=== PATIENT | female | born 1960 | race Two or more races ===

== ENCOUNTER → 2016-10-11 | Outpatient (CLI) | payer MEDICARE, MEDICAID ==
--- NOTE | 2016-10-11 10:57 | WOMENS IMAGING REPORT ---
EXAM DESCRIPTION: BONE DENSITY HIP/SPINE COMPLETED DATE/TIME: 10/11/2016 10:35 am REASON FOR STUDY: Z78.0 Z12.31 ENCNTR SCREEN MAMMOGRAM FOR MALIGNANT NEOPLASM OF LESIA M19.91 PRIMAR Y OSTEOARTHRITIS, UNSPECIFIED SITE Z78.0 ASYMPTOMATIC MENOPAUSAL STATE COMPARISON: None. TECHNIQUE: Dual-Energy X-ray Absorptiometry (DEXA) of the AP Spine and Hip. LIMITATIONS: None. FINDINGS: LUMBAR SPINE: The bone mineral density (BMD) measured from L1-L4 in the AP projection correlates with a T-score of +1.4, which is normal as defined by the World Health Organization. HIP: The bone mineral density (BMD) measured in the left femoral neck at the hip correlates with a T-score of +0.9, which is normal as defined by the World Health Organization. COMMENT: The World Health Organization defines low BMD as follows: T-score: Normal: Greater than -1.0 Osteopenia: Between -1.0 and -2.5 Osteoporosis: Less than -2.5 without fractures Established osteoporosis: Less than -2.5 with fractures In general, you may wish to consider: Diagnosis Treatment Follow-up DEXA Normal BMD Prevention 2-3 years Osteopenia Prevention/Therapy 1-2 years Osteoporosis Therapy Yearly TECHNICAL DOCUMENTATION: JOB ID: [id number] [employer]- All Rights Reserved
--- NOTE | 2016-10-11 11:05 | WOMENS IMAGING REPORT ---
EXAM DESCRIPTION: BILAT SCREENING MAMMO W/CAD COMPLETED DATE/TIME: 10/11/2016 10:35 am REASON FOR STUDY: Z12.31, ROUTINE SCREENING MAMMO Z12.31 ENCNTR SCREEN MAMMOGRAM FOR MALIGNANT NEOP LASM OF LESIA M19.91 PRIMARY OSTEOARTHRITIS, UNSPECIFIED SITE Z78.0 ASYMPTOMATIC MENOPAUSAL STATE COMPARISON: 2010 TECHNIQUE: Standard craniocaudal and mediolateral oblique views of each breast recorded using digita l acquisition. LIMITATIONS: None. FINDINGS: No masses, calcifications or architectural distortion. No areas of suspicion. Read with the assistance of CAD. .[facility] - R2 Cenova Version 1.3 .[facility] - R2 Cenova Version 1.3 .[facility] - R2 Cenova Version 2.4 .[facility] [place]2 Cenova Version 2.4 .[facility] - R2 [employer] Version 9.2 BREAST DENSITY: b. There are scattered areas of fibroglandular density. BIRAD: 1 NEGATIVE RECOMMENDATION: ROUTINE SCREENING COMMENT: PATIENT NOTIFIED BY LETTER. The [employer] recommends an annual screening mammogram for women aged 40 years or over. Each patient will receive a reminder prior to the anniversary date of her mammogram. The [employer] (ACR) has developed recommendations for screening MRI of the breast s in certain patient populations, to be used in conjunction with mammography. Breast MRI surveillanc e may be appropriate for women with more than 20% lifetime risk of developing breast cancer as deter mined by genetic testing, significant family history of the disease, or history of mantle radiation f or Hodgkins Disease. ACR Practice Guidelines 2008. TECHNICAL DOCUMENTATION: FINDING NUMBER: (1) ASSESSMENT: (1) JOB ID: [id number] [facility]- All Rights Reserved
== END ==
LOC: WI 09:37
PROVIDERS: ATTEND Nurse Practitioner
DX: Z12.31 Encounter for screening mammogram for malignant neoplasm of breast (principal); Z13.820 Encounter for screening for osteoporosis; Z78.0 Asymptomatic menopausal state
CPT/HCPCS: 77080; G0202; 77067

== ENCOUNTER → 2016-11-12 | Outpatient (CLI) | payer MEDICARE, MEDICAID ==
[2016-11-12 07:46] LABS: HEMATOCRIT 37.6 % (36.0-47.0); HEMOGLOBIN 12.5 g/dL (12.0-15.5); HGB HCT DIFFERENCE -0.1; MEAN CORPUSCULAR HEMOGLOBIN 30.4 pg (27.0-33.4); MEAN CORPUSCULAR HGB CONC 33.3 g/dL (32.0-36.0); MEAN CORPUSCULAR VOLUME 91 fl (80-97); RED BLOOD COUNT 4.12 10^6/uL (3.72-5.28); RED CELL DISTRIBUTION WIDTH 13.3 % (11.5-14.0); WHITE BLOOD COUNT 6.6 10^3/uL (4.0-10.5)
[2016-11-12 07:49] LABS: APPEARANCE,URINE SLIGHTLY-CLOUDY; BILIRUBIN,URINE NEGATIVE (NEGATIVE); GLUCOSE, URINE NEGATIVE (NEGATIVE); KETONES,URINE NEGATIVE (NEGATIVE); LEUKOCYTE ESTERASE,URINE NEGATIVE (NEGATIVE); NITRITE,URINE NEGATIVE (NEGATIVE); PROTEIN,URINE NEGATIVE (NEGATIVE); URINE SPECIFIC GRAVITY 1.016; UROBILINOGEN,URINE NEGATIVE mg/dL (<2.0)
[2016-11-12 08:17] LABS: ANION GAP 13 (5-19); BLOOD UREA NITROGEN 69 mg/dL (7-20); CALCIUM 9.9 mg/dL (8.4-10.2); CARBON DIOXIDE 22 mmol/L (22-30); CHLORIDE 101 mmol/L (98-107); CREATININE RESULT 2.43 mg/dL (0.52-1.25); GLUCOSE 108 mg/dL (75-110); POTASSIUM 3.9 mmol/L (3.6-5.0); SODIUM 135.8 mmol/L (137-145)
== END ==
LOC: OD 07:10
PROVIDERS: ATTEND Internal Medicine Nephrology
DX: E11.22 Type 2 diabetes mellitus with diabetic chronic kidney disease (principal); I12.9 Hypertensive chronic kidney disease with stage 1 through stage 4 chronic kidney disease, or unspecified chronic kidney disease; N18.3 Chronic kidney disease, stage 3 (moderate)
CPT/HCPCS: 36415; 80048; 81001; 85027

== ENCOUNTER → 2016-11-25 | Outpatient (CLI) | payer MEDICARE, MEDICAID | LOC: WI 07:06 | PROVIDERS: ATTEND Internal Medicine Nephrology | DX: N17.9 Acute kidney failure, unspecified (principal); N18.3 Chronic kidney disease, stage 3 (moderate) | CPT/HCPCS: 76770 ==

== ENCOUNTER → 2016-12-10 | Outpatient (CLI) | payer MEDICARE, MEDICAID ==
[2016-12-10 10:17] LABS: APPEARANCE,URINE CLEAR; BILIRUBIN,URINE NEGATIVE (NEGATIVE); GLUCOSE, URINE NEGATIVE (NEGATIVE); KETONES,URINE NEGATIVE (NEGATIVE); LEUKOCYTE ESTERASE,URINE NEGATIVE (NEGATIVE); NITRITE,URINE NEGATIVE (NEGATIVE); PROTEIN,URINE NEGATIVE (NEGATIVE); URINE SPECIFIC GRAVITY 1.019; UROBILINOGEN,URINE NEGATIVE mg/dL (<2.0)
[2016-12-10 10:35] LABS: HEMATOCRIT 33.6 % (36.0-47.0); HEMOGLOBIN 11.4 g/dL (12.0-15.5); HGB HCT DIFFERENCE 0.6; MEAN CORPUSCULAR HEMOGLOBIN 31.4 pg (27.0-33.4); MEAN CORPUSCULAR HGB CONC 33.9 g/dL (32.0-36.0); MEAN CORPUSCULAR VOLUME 93 fl (80-97); RED BLOOD COUNT 3.63 10^6/uL (3.72-5.28); RED CELL DISTRIBUTION WIDTH 12.9 % (11.5-14.0); WHITE BLOOD COUNT 5.2 10^3/uL (4.0-10.5)
[2016-12-10 10:52] LABS: ALANINE AMINOTRANSFERASE 26 U/L (9-52); ALBUMIN 4.1 g/dL (3.5-5.0); ALKALINE PHOSPHATASE 59 U/L (38-126); ANION GAP 13 (5-19); ASPARTATE AMINO TRANSFERASE 22 U/L (14-36); BILIRUBIN,DIRECT 0.2 mg/dL (0.0-0.4); BILIRUBIN,TOTAL 0.4 mg/dL (0.2-1.3); BLOOD UREA NITROGEN 20 mg/dL (7-20); CALCIUM 9.8 mg/dL (8.4-10.2); CARBON DIOXIDE 27 mmol/L (22-30); CHLORIDE 104 mmol/L (98-107); CREATININE RESULT 1.26 mg/dL (0.52-1.25); GLUCOSE 109 mg/dL (75-110); POTASSIUM 4.2 mmol/L (3.6-5.0); SODIUM 143.9 mmol/L (137-145); TOTAL PROTEIN 7.2 g/dL (6.3-8.2)
== END ==
LOC: OD 08:54
PROVIDERS: ATTEND Internal Medicine Nephrology
DX: I12.9 Hypertensive chronic kidney disease with stage 1 through stage 4 chronic kidney disease, or unspecified chronic kidney disease (principal); N18.3 Chronic kidney disease, stage 3 (moderate); E11.9 Type 2 diabetes mellitus without complications; M10.9 Gout, unspecified
CPT/HCPCS: 36415; 80053; 81001; 82533; 85027

== ENCOUNTER 2017-01-28 16:06 | Emergency (ER) | payer MEDICAID, MEDICARE ==
[2017-01-28 16:31] VITALS: BP 116/96
[2017-01-28] MEDS ORDERED: METOCLOPRAMIDE HCL 10 MG TABLET PO ONE (17:44)
--- NOTE | 2017-01-28 17:44 | ER Document Report ---
ED Medical Screen (RME) - General Chief Complaint: Flank Pain Stated Complaint: FLANK PAIN Time Seen by Provider: 01/28/17 17:41 Mode of Arrival: Ambulatory Information source: Patient Notes: PT REPORTS TO THE ED FOR C/O LEFT FLANK AND SYNCOPE. FLANK PAIN STARTED TODAY, WENT TO VOID, PASSED OUT DUE TO PAIN. MED GIVEN TO HER BY EMS HELPED. HX OF KIDNEY STONES. DENIES F/V REPORTS DIARRHEA AND CHILLS/BODY ACHES. EATING AND DRINKING OK. NO FOOD TODAY, BUT DRANK LOTS OF JUICE. TRAVEL OUTSIDE OF THE [place] IN LAST 30 DAYS: No - Related Data Allergies/Adverse Reactions: codeine [Codeine] Allergy (Verified 01/28/17 16:28) Past Medical History - Past Medical History Cardiac Medical History: Reports: Hx Hypercholesterolemia, Hx Hypertension Denies: Hx Coronary Artery Disease, Hx Heart Attack Pulmonary Medical History: Denies: Hx Asthma, Hx Bronchitis, Hx COPD, Hx Pneumonia Endocrine Medical History: Reports: Hx Diabetes Mellitus Type 2 Renal/ Medical History: Reports: Hx Kidney Stones, Hx Renal Insufficiency. Denies: Hx Peritoneal Dialysis Musculoskeltal Medical History: Denies Hx Arthritis Past Surgical History: Reports: Hx Hysterectomy - Immunizations Immunizations up to date: Yes Hx Diphtheria, Pertussis, Tetanus Vaccination: No Physical Exam - Vital signs Vitals: Temp Pulse Resp BP Pulse Ox 97.7 F 77 19 116/96 H 100 01/28/17 16:29 01/28/17 16:29 01/28/17 16:29 01/28/17 16:29 01/28/17 16:29 Course - Vital Signs Vital signs: Temp Pulse Resp BP Pulse Ox 97.7 F 77 19 116/96 H 100 01/28/17 16:29 01/28/17 16:29 01/28/17 16:29 01/28/17 16:29 01/28/17 16:29
== END 2017-01-28 17:41 | disposition left against medical advice (07) ==
LOC: ER 16:06
DX: R10.9 Unspecified abdominal pain (principal); R55 Syncope and collapse; Z87.442 Personal history of urinary calculi; E78.00 Pure hypercholesterolemia, unspecified; I10 Essential (primary) hypertension; Z90.710 Acquired absence of both cervix and uterus
CPT/HCPCS: 99281

== ENCOUNTER 2017-04-12 08:20 | Emergency (ER) | payer MEDICARE, MEDICAID ==
[2017-04-12] MEDS ORDERED: ONDANSETRON HCL INJ/PF 4 MG/2 ML SDV IV ONE (08:44)
[2017-04-12] MEDS ORDERED: NORMAL SALINE 1000 ML 1,000 ML IV ONE (08:44)
--- NOTE | 2017-04-12 08:45 | ER Document Report ---
ED GI/ - General Chief Complaint: Abdominal Pain Stated Complaint: ABDOMINAL PAIN/VOMITING Time Seen by Provider: 04/12/17 08:43 Mode of Arrival: Ambulatory Information source: Patient Notes: Patient is a 57-year-old female who presents to the ER today for dizziness, like "the room is spinning" that began last night. She states after the dizziness began she began having nausea, vomiting and a slight headache. She states that the room spins whenever she looks anywhere, moves her head or changes position. She has never had vertigo before. She also admits to ringing in both of her ears and fluid coming out of her ears on the pillow recently. She also admits to some heartburn, stating that has been 3 months since she had her Nexium because of the prior authorization that the insurance is not approved yet. She denies taking anything for acid reflux in the meantime. She denies any shortness of breath with chest pain, history of heart attack or stroke, radiation of chest pain anywhere else. TRAVEL OUTSIDE OF THE [place] IN LAST 30 DAYS: No - Related Data Allergies/Adverse Reactions: codeine [Codeine] Allergy (Verified 04/12/17 08:25) Past Medical History - General Information source: Patient - Social History Smoking Status: Unknown if Ever Smoked Family History: Reviewed & Not Pertinent Patient has suicidal ideation: No Patient has homicidal ideation: No - Past Medical History Cardiac Medical History: Reports: Hx Hypercholesterolemia, Hx Hypertension Denies: Hx Coronary Artery Disease, Hx Heart Attack Pulmonary Medical History: Denies: Hx Asthma, Hx Bronchitis, Hx COPD, Hx Pneumonia Endocrine Medical History: Reports: Hx Diabetes Mellitus Type 2 Renal/ Medical History: Reports: Hx Kidney Stones, Hx Renal Insufficiency. Denies: Hx Peritoneal Dialysis Musculoskeltal Medical History: Denies Hx Arthritis Past Surgical History: Reports: Hx Hysterectomy - Immunizations Immunizations up to date: Yes Hx Diphtheria, Pertussis, Tetanus Vaccination: No Review of Systems - Review of Systems Constitutional: No symptoms reported EENT: No symptoms reported Cardiovascular: No symptoms reported Respiratory: No symptoms reported Gastrointestinal: See HPI Genitourinary: No symptoms reported Female Genitourinary: No symptoms reported Musculoskeletal: No symptoms reported Skin: No symptoms reported Hematologic/Lymphatic: No symptoms reported Neurological/Psychological: See HPI Physical Exam - Vital signs Vitals: Temp Pulse Resp BP Pulse Ox 98.3 F 100 22 H 129/94 H 96 04/12/17 08:22 04/12/17 08:22 04/12/17 08:22 04/12/17 08:22 04/12/17 08:22 - Notes Notes: PHYSICAL EXAMINATION: GENERAL: Obviously uncomfortable, holding icepack to the right side of her head , but in no acute distress. HEAD: Atraumatic, normocephalic. EYES: Patient unable to tolerate extraocular movements from side to side, unable to assess nystagmus, pupils equal round and reactive to light, sclera anicteric, conjunctiva are normal. ENT: ear canals without erythema or foreign body, TMs with fluid behind bilaterally, nares patent, oropharynx clear without exudates. Moist mucous membranes. NECK: Normal range of motion, supple without lymphadenopathy LUNGS: CTAB and equal. No wheezes rales or rhonchi. HEART: Regular rate and rhythm without murmurs ABDOMEN: Soft, no tenderness. No guarding, no rebound EXTREMITIES: Normal range of motion, no pitting edema. No cyanosis. NEUROLOGICAL: Cranial nerves grossly intact. Normal sensory/motor exams. PSYCH: Normal mood, normal affect. SKIN: Warm, Dry, normal turgor, no rashes or lesions noted Course - Re-evaluation Re-evalutation: 04/12/17 10:07 Patient feels better after GI cocktail, I will send her home with an antacid medication that is not Nexium until she can get her Nexium for her insurance. Patient also feels better after meclizine, stating that it has helped her dizziness but that she is still having some nausea. I will add something else for nausea and send her home with hydrochlorothiazide, meclizine, nausea medication for Mnire's disease. - Vital Signs Vital signs: Temp Pulse Resp BP Pulse Ox 98.3 F 100 18 129/94 H 96 04/12/17 08:22 04/12/17 08:22 04/12/17 08:45 04/12/17 08:22 04/12/17 08:22 Discharge - Discharge Clinical Impression: Mnire's disease Qualifiers: Laterality: bilateral Qualified Code(s): H81.03 - Meniere's disease, bilateral Condition: Stable Disposition: HOME, SELF-CARE Additional Instructions: Return immediately for any new or worsening symptoms. Follow up with primary care provider, call tomorrow to make followup appointment. Prescriptions: Hydrochlorothiazide 12.5 mg PO DAILY #21 capsule Meclizine HCl 25 mg PO TID #40 tablet Omeprazole Magnesium [Prilosec Otc] 20 mg PO DAILY #30 tablet. Ondansetron [Zofran Odt 4 mg Tablet] 1 - 2 tab PO Q4H PRN #15 tab.rapdis PRN Reason: For Nausea/Vomiting Referrals: LIAM DE LA TORRE, NIEVES-C [Primary Care Provider] - Follow up as needed
[2017-04-12] MEDS ORDERED: MECLIZINE HCL 25 MG TABLET PO ONE (08:54)
[2017-04-12] MEDS ORDERED: PREDNISONE 20 MG TABLET PO ONE (08:54)
[2017-04-12] MEDS ORDERED: HYDROCHLOROTHIAZIDE 12.5 MG CAPSULE PO ONE (08:54)
[2017-04-12] MEDS ORDERED: METOCLOPRAMIDE HCL ORAL SOLN 10 MG/10 ML UDCUP PO ONE (08:55)
[2017-04-12] MEDS ORDERED: MAG HYDROX/AL HYDROX/SIMETH SUSP 30 ML UDCUP PO ONE (08:55)
[2017-04-12] MEDS ORDERED: LIDOCAINE 2% VISCOUS SOLN 20 ML UDCUP PO ONE (08:55)
[2017-04-12] MEDS ORDERED: ONDANSETRON 4 MG TAB.RAPDIS PO ONE (10:10)
[2017-04-12 10:27] VITALS: BP 132/85
== END 2017-04-12 10:27 | disposition home or self-care (01) ==
LOC: ER 08:20
DX: H81.03 Meniere's disease, bilateral (principal); R42 Dizziness and giddiness; Z88.6 Allergy status to analgesic agent; I10 Essential (primary) hypertension; E78.00 Pure hypercholesterolemia, unspecified; Z90.710 Acquired absence of both cervix and uterus; E11.9 Type 2 diabetes mellitus without complications; R11.0 Nausea; Z79.899 Other long term (current) drug therapy
CPT/HCPCS: 99284; A9270 ×4; J3490; S0119

== ENCOUNTER → 2017-07-09 | Outpatient (CLI) | payer MEDICARE, MEDICAID ==
[2017-07-09 09:28] LABS: APPEARANCE,URINE CLEAR; BILIRUBIN,URINE NEGATIVE (NEGATIVE); GLUCOSE, URINE NEGATIVE (NEGATIVE); KETONES,URINE NEGATIVE (NEGATIVE); LEUKOCYTE ESTERASE,URINE NEGATIVE (NEGATIVE); NITRITE,URINE NEGATIVE (NEGATIVE); PROTEIN,URINE NEGATIVE (NEGATIVE); URINE SPECIFIC GRAVITY 1.018; UROBILINOGEN,URINE NEGATIVE mg/dL (<2.0)
[2017-07-09 09:39] LABS: HEMATOCRIT 35.1 % (36.0-47.0); HEMOGLOBIN 12.3 g/dL (12.0-15.5); HGB HCT DIFFERENCE 1.8; MEAN CORPUSCULAR HEMOGLOBIN 31.5 pg (27.0-33.4); MEAN CORPUSCULAR HGB CONC 34.9 g/dL (32.0-36.0); MEAN CORPUSCULAR VOLUME 90 fl (80-97); RED BLOOD COUNT 3.89 10^6/uL (3.72-5.28); RED CELL DISTRIBUTION WIDTH 12.3 % (11.5-14.0); WHITE BLOOD COUNT 5.1 10^3/uL (4.0-10.5)
[2017-07-09 10:02] LABS: ANION GAP 12 (5-19); BLOOD UREA NITROGEN 17 mg/dL (7-20); CALCIUM 9.7 mg/dL (8.4-10.2); CARBON DIOXIDE 26 mmol/L (22-30); CHLORIDE 106 mmol/L (98-107); CREATININE RESULT 0.95 mg/dL (0.52-1.25); GLUCOSE 173 mg/dL (75-110); POTASSIUM 4.6 mmol/L (3.6-5.0); SODIUM 143.5 mmol/L (137-145); URIC ACID 6.3 mg/dL (2.5-7.5)
== END ==
LOC: OD 08:15
PROVIDERS: ATTEND Internal Medicine Nephrology
DX: E11.22 Type 2 diabetes mellitus with diabetic chronic kidney disease (principal); I12.9 Hypertensive chronic kidney disease with stage 1 through stage 4 chronic kidney disease, or unspecified chronic kidney disease; N18.3 Chronic kidney disease, stage 3 (moderate)
CPT/HCPCS: 36415; 80048; 81001; 84550; 85027

== ENCOUNTER 2018-01-02 08:24 | Emergency (ER) | payer MEDICARE, MEDICAID ==
--- NOTE | 2018-01-02 09:26 | RADIOLOGY REPORT (SQ) ---
EXAM DESCRIPTION: CHEST 2 VIEWS COMPLETED DATE/TIME: 01/02/2018 9:18 am REASON FOR STUDY: cough congestion COMPARISON: 05/25/2016. EXAM PARAMETERS: NUMBER OF VIEWS: two views TECHNIQUE: Digital Frontal and Lateral radiographic views of the chest acquired. RADIATION DOSE: NA LIMITATIONS: none FINDINGS: LUNGS AND PLEURA: No opacities, masses or pneumothorax. No pleural effusion. MEDIASTINUM AND HILAR STRUCTURES: No masses or contour abnormalities. HEART AND VASCULAR STRUCTURES: Heart normal size. No evidence for failure. BONES: No acute findings. HARDWARE: None in the chest. OTHER: No other significant finding. IMPRESSION: NO ACUTE RADIOGRAPHIC FINDING IN THE CHEST. TECHNICAL DOCUMENTATION: JOB ID: [id number] [employer]- All Rights Reserved Reading location - IP/workstation name: [email or web address]
--- NOTE | 2018-01-02 09:49 | ER Document Report ---
ED General - General Chief Complaint: Congestion Stated Complaint: COUGH,CONGESTION, CHEST PAIN Time Seen by Provider: 01/02/18 08:35 Mode of Arrival: Ambulatory Information source: Patient Notes: 57-year-old female presents with 1 week duration of cough congestion. Patient was seen at urgent care started on Augmentin notes intermittent fevers and chills,. Patient denies any vomiting notes she has been using her inhaler that she was provided. TRAVEL OUTSIDE OF THE [place] IN LAST 30 DAYS: No - HPI Onset: Last week Onset/Duration: Persistent Quality of pain: Achy Severity: Mild Pain Level: 1 Associated symptoms: Body/muscle aches, Chills, Productive cough, Fever Exacerbated by: Denies Relieved by: Denies Similar symptoms previously: Yes Recently seen / treated by doctor: Yes - Related Data Allergies/Adverse Reactions: codeine [Codeine] Allergy (Verified 01/02/18 09:19) Past Medical History - Social History Smoking Status: Never Smoker Cigarette use (# per day): No Chew tobacco use (# tins/day): No Smoking Education Provided: No Frequency of alcohol use: None Drug Abuse: None Family History: Reviewed & Not Pertinent Patient has suicidal ideation: No Patient has homicidal ideation: No - Past Medical History Cardiac Medical History: Reports: Hx Hypercholesterolemia, Hx Hypertension Denies: Hx Coronary Artery Disease, Hx Heart Attack Pulmonary Medical History: Denies: Hx Asthma, Hx Bronchitis, Hx COPD, Hx Pneumonia Endocrine Medical History: Reports: Hx Diabetes Mellitus Type 2 Renal/ Medical History: Reports: Hx Kidney Stones, Hx Renal Insufficiency. Denies: Hx Peritoneal Dialysis Musculoskeltal Medical History: Denies Hx Arthritis Past Surgical History: Reports: Hx Hysterectomy - Immunizations Immunizations up to date: Yes Hx Diphtheria, Pertussis, Tetanus Vaccination: No Review of Systems - Review of Systems Notes: REVIEW OF SYSTEMS: CONSTITUTIONAL : Fevers chills EENT: Denies eye, ear, throat, or mouth pain or symptoms. Denies nasal or sinus congestion or discharge. Denies throat, tongue, or mouth swelling or difficulty swallowing. CARDIOVASCULAR: Denies chest pain. Denies palpitations or racing or irregular heart beat. Denies ankle edema. RESPIRATORY: Productive cough shortness of breath GASTROINTESTINAL: Denies abdominal pain or distention. Denies nausea, vomiting , or diarrhea. Denies blood in vomitus, stools, or per rectum. Denies black, tarry stools. Denies constipation. GENITOURINARY: Denies difficulty urinating, painful urination, burning, frequency, blood in urine, or discharge. FEMALE GENITOURINARY: Denies vaginal bleeding, heavy or abnormal periods, irregular periods. Denies vaginal discharge or odor. MUSCULOSKELETAL: Denies back or neck pain or stiffness. Denies joint pain or swelling. SKIN: Denies rash, lesions or sores. HEMATOLOGIC : Denies easy bruising or bleeding. LYMPHATIC: Denies swollen, enlarged glands. NEUROLOGICAL: Denies confusion or altered mental status. Denies passing out or loss of consciousness. Denies dizziness or lightheadedness. Denies headache. Denies weakness or paralysis or loss of use of either side. Denies problems with gait or speech. Denies sensory loss, numbness, or tingling. Denies seizures. PSYCHIATRIC: Denies anxiety or stress. Denies depression, suicidal ideation, or homicidal ideation. ALL OTHER SYSTEMS REVIEWED AND NEGATIVE. PHYSICAL EXAMINATION: GENERAL: Well-appearing, well-nourished and in no acute distress. HEAD: Atraumatic, normocephalic. EYES: Pupils equal round and reactive to light, extraocular movements intact, conjunctiva are normal. ENT: Nares patent, oropharynx clear without exudates. Moist mucous membranes. NECK: Normal range of motion, supple without lymphadenopathy LUNGS: Breath sounds clear to auscultation bilaterally and equal. No wheezes rales or rhonchi. HEART: Regular rate and rhythm without murmurs ABDOMEN: Soft, nontender, nondistended abdomen. No guarding, no rebound. No masses appreciated. Female : deferred Musculoskeletal: Normal range of motion, no pitting or edema. No cyanosis. Chest wall pain upon palpation NEUROLOGICAL: Cranial nerves grossly intact. Normal speech, normal gait. Normal sensory, motor exams PSYCH: Normal mood, normal affect. SKIN: Warm, Dry, normal turgor, no rashes or lesions noted. Dictation was performed using [employer] voice recognition software Physical Exam - Vital signs Vitals: Temp Pulse Resp BP Pulse Ox 97.7 F 83 18 141/72 H 97 01/02/18 08:29 01/02/18 08:29 01/02/18 08:29 01/02/18 08:29 01/02/18 08:29 Course - Re-evaluation Re-evalutation: 01/02/18 09:49 Patient overall looks well is in no distress x-ray noted no acute abnormality given medical history though she is at higher risk for decompensation from infectious process, patient therefore will be placed on azithromycin very low dose of prednisone as she does have a history of diabetes. After performing a Medical Screening Examination, I estimate there is LOW risk for ACUTE CORONARY SYNDROME, PULMONARY EMBOLI, RESPIRATORY FAILURE, SEPSIS OR MENINGITIS, thus I consider the discharge disposition reasonable. I have reevaluated this patient multiple times and no significant life threatening changes are noted. The patient and I have discussed the diagnosis and risks, and we agree with discharging home with close follow-up. We also discussed returning to the Emergency Department immediately if new or worsening symptoms occur. We have discussed the symptoms which are most concerning (e.g., changing or worsening pain, trouble swallowing or breathing, neck stiffness, fever) that necessitate immediate return. - Vital Signs Vital signs: Temp Pulse Resp BP Pulse Ox 97.7 F 83 18 141/72 H 97 01/02/18 08:29 01/02/18 08:29 01/02/18 08:29 01/02/18 08:29 01/02/18 08:29 - Diagnostic Test Radiology reviewed: Image reviewed - No acute abnormality noted 2 view chest x- ray, Reports reviewed Discharge - Discharge Clinical Impression: Productive cough, Body aches Condition: Stable Disposition: HOME, SELF-CARE Instructions: Pneumonia ([facility]) Prescriptions: Azithromycin 250 mg PO ASDIR PRN #6 tablet PRN Reason: Prednisone [Deltasone 20 mg Tablet] 1 tab PO DAILY 5 Days tablet Referrals: LIAM DE LA TORRE NP-C [Primary Care Provider] - Follow up tomorrow
[2018-01-02] MEDS ORDERED: ALBUTEROL SULFATE HFA (90 MCG/PUFF) 8 GM MDI (1 MDI/ER DISP) IH PRN (10:44)
[2018-01-02 10:46] VITALS: BP 135/71
== END 2018-01-02 10:48 | disposition home or self-care (01) ==
LOC: ER 08:24
DX: R09.81 Nasal congestion (principal); R05 Cough; R07.9 Chest pain, unspecified; M79.1 Myalgia; R50.9 Fever, unspecified; I10 Essential (primary) hypertension; E11.9 Type 2 diabetes mellitus without complications
CPT/HCPCS: 99283; 71046; J3490

== ENCOUNTER 2018-02-10 21:01 | Observation (INO) | payer MEDICARE, MEDICAID ==
[2018-02-10 21:31] LABS: ABSOLUTE EOSINOPHILS # (AUTO) 0.2 10^3/uL (0.0-0.6); ABSOLUTE LYMPHOCYTES (AUTO) 2.5 10^3/uL (0.5-4.7); ABSOLUTE MONOCYTES (AUTO) 0.6 10^3/uL (0.1-1.4); ABSOLUTE NEUT (AUTO) 4.6 10^3/uL (1.7-8.2); BASOPHILS % (AUTO) 0.6 % (0-2); EOSINOPHILS % (AUTO) 2.2 % (0-6); HEMATOCRIT 35.2 % (36.0-47.0); HEMOGLOBIN 11.9 g/dL (12.0-15.5); LYMPHOCYTES % (AUTO) 32.2 % (13-45); MEAN CORPUSCULAR HEMOGLOBIN 30.8 pg (27.0-33.4); MEAN CORPUSCULAR HGB CONC 33.9 g/dL (32.0-36.0); MEAN CORPUSCULAR VOLUME 91 fl (80-97); MONOCYTES % (AUTO) 7.2 % (3-13); PLATELET COUNT 247 10^3/uL (150-450); RED BLOOD COUNT 3.87 10^6/uL (3.72-5.28); RED CELL DISTRIBUTION WIDTH 12.5 % (11.5-14.0); SEGMENTED NEUTROPHILS % (AUTO) 57.8 % (42-78); TOTAL CELLS COUNTED % (AUTO) 100 %; WHITE BLOOD COUNT 7.9 10^3/uL (4.0-10.5)
[2018-02-10 21:50] LABS: ALANINE AMINOTRANSFERASE 25 U/L (9-52); ALBUMIN 4.2 g/dL (3.5-5.0); ALKALINE PHOSPHATASE 58 U/L (38-126); ANION GAP 11 (5-19); ASPARTATE AMINO TRANSFERASE 20 U/L (14-36); BILIRUBIN,DIRECT 0.2 mg/dL (0.0-0.4); BILIRUBIN,TOTAL 0.2 mg/dL (0.2-1.3); BLOOD UREA NITROGEN 20 mg/dL (7-20); CALCIUM 9.3 mg/dL (8.4-10.2); CARBON DIOXIDE 24 mmol/L (22-30); CHLORIDE 106 mmol/L (98-107); CREATINE KINASE 301 U/L (30-135); GLUCOSE 145 mg/dL (75-110); SODIUM 140.9 mmol/L (137-145); TOTAL PROTEIN 7.4 g/dL (6.3-8.2)
--- NOTE | 2018-02-10 21:55 | RADIOLOGY REPORT (SQ) ---
EXAM DESCRIPTION: CHEST SINGLE VIEW COMPLETED DATE/TIME: 02/10/2018 9:43 pm REASON FOR STUDY: cp COMPARISON: 01/02/2018 EXAM PARAMETERS: NUMBER OF VIEWS: One view. TECHNIQUE: Single frontal radiographic view of the chest acquired. RADIATION DOSE: NA LIMITATIONS: None. FINDINGS: LUNGS AND PLEURA: No opacities, masses or pneumothorax. No pleural effusion. MEDIASTINUM AND HILAR STRUCTURES: No masses. Contour normal. HEART AND VASCULAR STRUCTURES: Heart normal in size. Normal vasculature. BONES: No acute findings. HARDWARE: None in the chest. OTHER: No other significant finding. IMPRESSION: NO ACUTE RADIOGRAPHIC FINDING IN THE CHEST. TECHNICAL DOCUMENTATION: JOB ID: [id number] [place]-72 2010 [employer]- All Rights Reserved Reading location - IP/workstation name: [email or web address]
[2018-02-10] MEDS ORDERED: ACETAMINOPHEN 325 MG TABLET PO ONE (22:01)
[2018-02-10] MEDS ORDERED: ONDANSETRON HCL INJ/PF 4 MG/2 ML SDV IV ONE (22:01)
[2018-02-10 22:02] LABS: CREATINE KINASE MB 1.46 ng/mL (<4.55)
[2018-02-10 22:04] LABS: TROPONIN I < 0.012 ng/mL
[2018-02-10] MEDS ORDERED: ONDANSETRON 4 MG TAB.RAPDIS PO ONE (22:23)
--- NOTE | 2018-02-11 01:01 | ER Document Report ---
ED Cardiac - General Chief Complaint: Chest Pain Stated Complaint: CHEST PAIN Time Seen by Provider: 02/10/18 21:28 Mode of Arrival: Medic Information source: Patient Notes: 58-year-old female patient presents with complaints of left-sided chest pain. Patient reports the pain feels like a sharp pain with intermittent tightness that started after she got out of the shower. Patient reports the pain radiated down her left arm and into her fingertips initially. Patient reports associated shortness of breath, diaphoresis and nausea. Patient denies any vomiting. Patient reports that she was given sublingual nitroglycerin in the ambulance and that helped with her pain. Patient's chest free upon my evaluation. Patient was also given aspirin 81 mg 4. Patient with past medical history of diabetes, chronic pain as well as chronic kidney disease. TRAVEL OUTSIDE OF THE [place] IN LAST 30 DAYS: No - Related Data Allergies/Adverse Reactions: codeine [Codeine] Allergy (Verified 01/02/18 09:19) Past Medical History - General Information source: Patient - Social History Smoking Status: Never Smoker Chew tobacco use (# tins/day): No Frequency of alcohol use: None Family History: Reviewed & Not Pertinent Patient has suicidal ideation: No Patient has homicidal ideation: No - Past Medical History Cardiac Medical History: Reports: Hx Hypercholesterolemia, Hx Hypertension Denies: Hx Coronary Artery Disease, Hx Heart Attack Pulmonary Medical History: Denies: Hx Asthma, Hx Bronchitis, Hx COPD, Hx Pneumonia Endocrine Medical History: Reports: Hx Diabetes Mellitus Type 2 Renal/ Medical History: Reports: Hx Kidney Stones, Hx Renal Insufficiency. Denies: Hx Peritoneal Dialysis Musculoskeltal Medical History: Denies Hx Arthritis Past Surgical History: Reports: Hx Hysterectomy - Immunizations Immunizations up to date: Yes Hx Diphtheria, Pertussis, Tetanus Vaccination: No Review of Systems - Review of Systems Constitutional: See HPI EENT: No symptoms reported Cardiovascular: See HPI Respiratory: See HPI Gastrointestinal: See HPI Genitourinary: No symptoms reported Female Genitourinary: No symptoms reported Musculoskeletal: No symptoms reported Skin: No symptoms reported Hematologic/Lymphatic: No symptoms reported Neurological/Psychological: No symptoms reported Physical Exam - Vital signs Vitals: Temp Pulse Resp BP Pulse Ox 98 F 93 20 114/74 97 02/10/18 21:03 02/10/18 21:03 02/10/18 21:03 02/10/18 21:03 02/10/18 21:03 - Notes Notes: PHYSICAL EXAMINATION: GENERAL: Well-appearing, well-nourished and in no acute distress. HEAD: Atraumatic, normocephalic. EYES: Pupils equal round and reactive to light, extraocular movements intact, conjunctiva are normal. ENT: Nares patent, oropharynx clear without exudates. Moist mucous membranes. NECK: Normal range of motion, supple without lymphadenopathy LUNGS: Breath sounds clear to auscultation bilaterally and equal. No wheezes rales or rhonchi. HEART: Regular rate and rhythm without murmurs ABDOMEN: Soft, nontender, nondistended abdomen. No guarding, no rebound. No masses appreciated. Female : deferred Musculoskeletal: Normal range of motion, no pitting or edema. No cyanosis. NEUROLOGICAL: Cranial nerves grossly intact. Normal speech, normal gait. Normal sensory, motor exams PSYCH: Normal mood, normal affect. SKIN: Warm, Dry, normal turgor, no rashes or lesions noted. Course - Re-evaluation Re-evalutation: 58-year-old female patient with complaints of sharp left-sided chest pain that radiates into her left arm. Patient also reports associated shortness of breath , diaphoresis and nausea. Patient was given aspirin 81 mg 4 in route to the EMS, patient was also given 3 sublingual nitroglycerin which patient states resolved her pain. 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 Initial EKG is a sinus rhythm with no ST segment deviations. Patient's initial troponin is negative. CBC unremarkable. Chemistry reveals a elevated creatinine 1.58 however this is a chronic issue for this patient. Chest x-ray is unremarkable. Repeat troponin is negative. Patient does have a heart score of 4 which places her at a moderate risk for future ACS. 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 Will consult Dr. Hinojosa for admission for stress test and echocardiogram. Dr. Hinojosa accepted patient for telemetry observation to his service. Patient is agreeable to this plan of care. Patient remains chest pain-free and hemodynamically stable. - Vital Signs Vital signs: Temp Pulse Resp BP Pulse Ox 98 F 93 18 106/55 L 98 02/10/18 21:03 02/10/18 21:03 02/11/18 01:01 02/11/18 01:01 02/11/18 01:01 - Laboratory Result Diagrams: 02/10/18 21:20 02/10/18 21:20 Laboratory results interpreted by me: 02/10/18 02/10/18 21:20 21:20 Hgb 11.9 L Hct 35.2 L Creatinine 1.58 H Est GFR ( Amer) 41 L Est GFR (Non-Af Amer) 33 L Glucose 145 H Creatine Kinase 301 H Discharge - Discharge Clinical Impression: Chest pain Qualifiers: Chest pain type: unspecified Qualified Code(s): R07.9 - Chest pain, unspecified Condition: Stable Disposition: ADMITTED OBSERVATION Admitting Provider: Hospitalist Unit Admitted: Telemetry
[2018-02-11] MEDS ORDERED: NITROGLYCERIN 0.4 MG/TAB 25 TAB/BOTTLE SL PRN (01:37)
[2018-02-11] MEDS ORDERED: MAG HYDROX/AL HYDROX/SIMETH SUSP 30 ML UDCUP PO PRN (01:37)
[2018-02-11] MEDS ORDERED: LACTULOSE SYRUP 20 GM/30 ML UDCUP PO ONE (01:37)
[2018-02-11] MEDS ORDERED: GLUCAGON,HUMAN RECOMB 1 MG INJ IM PRN (01:41)
[2018-02-11] MEDS ORDERED: INSULIN LISPRO 100 UNIT/ML 3 ML VIAL SUBCUT PRN (01:41)
[2018-02-11] MEDS ORDERED: DEXTROSE 40% GEL 15 GM TUBE PO PRN ×2 (01:41)
[2018-02-11] MEDS ORDERED: DEXTROSE 50%-WATER 25 GM/50 ML DISP.SYRIN IV PRN ×2 (01:41)
[2018-02-11] MEDS ORDERED: ATORVASTATIN CALCIUM 40 MG TABLET PO ONE (02:00)
--- NOTE | 2018-02-11 05:37 | PDOC H&P ---
History of Present Illness Admission Date/PCP: 02/11/18 01:53 KURT GANDHI Patient complains of: Chest pain History of Present Illness: FREDRICK JETER is a 58 year old female with history of morbid obesity, opiate dependent chronic pain, hypertension and diabetes. Patient presents with 24 hours of intermittent left-sided retrosternal chest pain which is 3 out of 5 intensity, waxing and waning with radiation to the left arm associated with nausea and diaphoresis. No palpitations. Exacerbating factors with activity, alleviating factors of nitroglycerin. She denies previous episode, new medications, cardiac stress test. She admits constipation. Initial workup was unremarkable she is referred to the hospitalist for admission Past Medical History Cardiac Medical History: Reports: Hyperlipidema, Hypertension Denies: Coronary Artery Disease, Myocardial Infarction Pulmonary Medical History: Denies: Asthma, Bronchitis, Chronic Obstructive Pulmonary Disease (COPD), Pneumonia Endocrine Medical History: Reports: Diabetes Mellitus Type 2, Obesity Musculoskeltal Medical History: Denies: Arthritis Hematology: Denies: Anemia Past Surgical History Past Surgical History: Reports: Hysterectomy Social History Information Source: Patient Smoking Status: Never Smoker Frequency of Alcohol Use: None Drugs: None - Advance Directive Resuscitation Status: Full Code Family History Family History: CAD, DM, Hyperlipidemia, Hypertension Parental Family History Reviewed: Yes Children Family History Reviewed: Yes Sibling(s) Family History Reviewed.: Yes Medication/Allergy Home Medications: Glyburide [Diabeta 5 mg Tablet] 4 mg PO DAILY 10/04/12 Saxagliptin HCl/Metformin HCl [Kombiglyze Xr 2.5-1,000 mg Tab] 1 each PO DAILY 10/04/12 Oxycodone HCl/Acetaminophen [Percocet 5-325 mg Tablet] 1 - 2 tab PO Q4H PRN #10 tablet 02/05/15 Naproxen [Naprosyn 250 mg Tablet] 250 mg PO DAILY PRN #30 tablet 02/13/15 Tramadol HCl [Tramadol HCl ER] 200 mg PO DAILY PRN 02/13/15 Hydromorphone HCl [Dilaudid 2 Mg Tablet] 2 mg PO Q4HP PRN #10 tablet 12/25/15 Ondansetron [Zofran Odt 4 mg Tablet] 1 - 2 tab PO Q4H #10 tab.rapdis 12/25/15 Tamsulosin HCl 0.4 mg PO DAILY #7 cap.er.24h 12/25/15 Oxycodone HCl/Acetaminophen [Percocet 5-325 mg Tablet] 1 - 2 tab PO Q4H PRN #15 tablet 01/08/16 Hydrochlorothiazide 12.5 mg PO DAILY #21 capsule 04/12/17 Meclizine HCl 25 mg PO TID #40 tablet 04/12/17 Omeprazole Magnesium [Prilosec Otc] 20 mg PO DAILY #30 tablet.dr 04/12/17 Ondansetron [Zofran Odt 4 mg Tablet] 1 - 2 tab PO Q4H PRN #15 tab.rapdis Azithromycin 250 mg PO ASDIR PRN #6 tablet 01/02/18 Prednisone [Deltasone 20 mg Tablet] 1 tab PO DAILY 5 Days tablet 01/02/18 Allergies/Adverse Reactions: codeine [Codeine] Allergy (Verified 01/02/18 09:19) Review of Systems Constitutional: ABSENT: chills, fever(s), headache(s), weight gain, weight loss Eyes: ABSENT: visual disturbances Ears: ABSENT: hearing changes Cardiovascular: ABSENT: chest pain, dyspnea on exertion, edema, orthropnea, palpitations Respiratory: ABSENT: cough, hemoptysis Gastrointestinal: ABSENT: abdominal pain, constipation, diarrhea, hematemesis, hematochezia, nausea, vomiting Genitourinary: ABSENT: dysuria, hematuria Musculoskeletal: ABSENT: joint swelling Integumentary: ABSENT: rash, wounds Neurological: ABSENT: abnormal gait, abnormal speech, confusion, dizziness, focal weakness, syncope Psychiatric: ABSENT: anxiety, depression, homidical ideation, suicidal ideation Endocrine: ABSENT: cold intolerance, heat intolerance, polydipsia, polyuria Hematologic/Lymphatic: ABSENT: easy bleeding, easy bruising Physical Exam Vital Signs: Temp Pulse Resp BP Pulse Ox 98 F 68 18 106/55 L 98 02/10/18 21:03 02/11/18 04:05 02/11/18 01:01 02/11/18 01:01 02/11/18 01:01 General appearance: PRESENT: no acute distress, well-developed, well-nourished Head exam: PRESENT: atraumatic, normocephalic Eye exam: PRESENT: conjunctiva pink, EOMI, PERRLA. ABSENT: scleral icterus Ear exam: PRESENT: normal external ear exam Mouth exam: PRESENT: moist, tongue midline Neck exam: ABSENT: carotid bruit, JVD, lymphadenopathy, thyromegaly Respiratory exam: PRESENT: clear to auscultation sammie. ABSENT: rales, rhonchi, wheezes Cardiovascular exam: PRESENT: RRR. ABSENT: diastolic murmur, rubs, systolic murmur Pulses: PRESENT: normal dorsalis pedis pul Vascular exam: PRESENT: normal capillary refill GI/Abdominal exam: PRESENT: normal bowel sounds, soft. ABSENT: distended, guarding, mass, organolmegaly, rebound, tenderness Rectal exam: PRESENT: deferred Extremities exam: PRESENT: full ROM. ABSENT: calf tenderness, clubbing, pedal edema Neurological exam: PRESENT: alert, awake, oriented to person, oriented to place , oriented to time, oriented to situation, CN II-XII grossly intact. ABSENT: motor sensory deficit Psychiatric exam: PRESENT: appropriate affect, normal mood. ABSENT: homicidal ideation, suicidal ideation Skin exam: PRESENT: dry, intact, warm. ABSENT: cyanosis, rash Results Impressions: Chest X-Ray 02/10/18 21:03 IMPRESSION: NO ACUTE RADIOGRAPHIC FINDING IN THE CHEST. Assessment & Plan - Diagnosis (1) Chest pain Qualifiers: Chest pain type: unspecified Qualified Code(s): R07.9 - Chest pain, unspecified Plan: Atypical chest pain though the patient's pain is atypical there are multiple risk factors for coronary artery disease and subsequently will observe and evaluation of acute coronary syndrome versus coronary artery disease with anginal equivalents. Cardiac monitoring blood pressure Q6 hours ,TSH, lipid profile, serial cardiac enzymes and cardiac stress test (2) Diabetes Is this a current diagnosis for this admission?: Yes Plan: Humalog sliding scale while n.p.o. (3) Constipation Is this a current diagnosis for this admission?: Yes Plan: Lactulose, limit narcotics, consider enema - Time Time Spent: 30 to 50 Minutes
[2018-02-11] MEDS: HEPARIN SOD (PORCINE) 5,000 UNIT/ML 1 ML SYRINGE SUBCUT SCH ×2 (06:37→15:31)
--- NOTE | 2018-02-11 07:26 | EKG REPORT ---
SEVERITY:- BORDERLINE ECG - SINUS RHYTHM BORDERLINE T ABNORMALITIES, ANT-LAT LEADS : Confirmed by: Hoang Boston MD 11-Feb-2018 07:25:38
[2018-02-11 07:52] LABS: CHOLESTEROL 184.61 mg/dL (0-200); TRIGLYCERIDES 169 mg/dL (<150)
[2018-02-11 08:04] LABS: DIRECT LDL 85 mg/dL (<100)
[2018-02-11 08:06] LABS: CREATINE KINASE MB 1.18 ng/mL (<4.55)
[2018-02-11 08:09] LABS: TROPONIN I < 0.012 ng/mL; VLDL CHOLESTEROL 33.8 mg/dL (10-31)
[2018-02-11] MEDS ORDERED: DOCUSATE SODIUM 100 MG CAPSULE PO SCH (10:00)
[2018-02-11] MEDS ORDERED: TAMSULOSIN HCL 0.4 MG CAP.SR.24H PO SCH (10:00)
[2018-02-11 12:56] LABS: CREATINE KINASE MB 1.15 ng/mL (<4.55)
[2018-02-11 13:02] LABS: TROPONIN I < 0.012 ng/mL
[2018-02-11] MEDS ORDERED: REGADENOSON INJ 0.4 MG/5 ML DISP.SYRIN IV ONE (13:26)
--- NOTE | 2018-02-11 13:50 | DRAGON STRESS TEST REPORT ---
INTRAVENOUS LEXISCAN CARDIOLITE STRESS TEST USING SINGLE PHOTON EMMISION COMPUTERIZED TOMOGRAPHIC. DATE OF PROCEDURE: February 11, 2018, INDICATION : Chest pain CARDIAC RISK FACTORS: Hypertension, diabetes, dyslipidemia, family history of CAD RESTING EKG: Sinus rhythm without any baseline ST-T wave changes STRESS EKG: No significant ST segment changes noted with LexiScan bolus REASON FOR TERMINATION: Protocol. PROCEDURE REPORT: Baseline heart rate 67 beats per minute with blood pressure of 107/70. Patient had no significant complaints. Patient was bolused with Lexiscan 0.4 mg intravenously followed by saline bolus. Heart rate at 2 minutes post bolus 93 with a blood pressure of 121/62. 3 minutes post bolus heart rate 95 with blood pressure of 127/66. No significant EKG changes were noted. Patient had no significant complaints during the procedure or postprocedure. Patient injected with Aminophyllin 75 mg at 3 minutes or later after Lexiscan bolus. CONCLUSIONS: Normal EKG and hemodynamic response to IV LexiScan. NUCLEAR DATA: At rest the patient was given 16.14 millicuries of technetium 99 sestamibi injected intravenously. As per protocol rest gated SPECT images were obtained. On day of stress test, the patient was given intravenous LexiScan at a dose of 0.4 mg in 5 mL intravenously, followed by flush with normal saline. Subsequently the stress dose of 46.2 millicuries of technetium 99 sestamibi was injected intravenously. As per protocol stress gated images were obtained. NUCLEAR INTERPRETATION: Both raw and processed data were used for interpretation. Visual, qualitative, computer-generated quantitative data was used. There was good myocardial uptake of technetium compound. Motion artifact and soft tissue attenuations were noted. Increased visceral uptake was noted. Significant breast attenuation artifact and other soft tissue artifact as well as motion artifacts were noted. Also there was increased visceral uptake causing difficulty with interpretation. Mild decreased uptake noted in the mid anterior wall and mid inferior wall, these are felt to be mostly artifactual but cannot rule out an area of mild ischemia. There were however no corresponding wall motion abnormalities therefore probable no definitive areas of transient perfusion defect noted, No definitive areas of fixed perfusion defect or scars noted. EKG gated imaging showed LV EF at 50 to %, rest and stress gated EF similar visually, no regional wall motion and modalities were noted. T. I D. ratio was 1.08. Lung heart ratio noted to be within normal limits 0.30. No significant extracardiac and abnormal radiotracer activities were noted. RV free wall uptake was noted to be WNL. IMPRESSION: Also refer to comments under nuclear interpretation. Also test results needs to be interpreted in the context of pretest probability. 1. Mild decreased uptake noted in the mid anterior wall and mid inferior wall, these are felt to be mostly artifactual but cannot rule out an area of mild ischemia. There were however no corresponding wall motion abnormalities therefore, no definitive areas of transient perfusion defect or ischemia noted. 2. There is no definitive scintigraphic evidence of myocardial infarction/scar. 3. EKG gated imaging shows left ventricular ejection fraction of approx. 52 % with no definite regional wall motion abnormalities being noted.. 4. Clinical correlation requested as occasionally single vessel disease or balanced ischemia could be missed. In approximately 10% of the cases Lexiscan may not cause adequate vasodilatory stress. RECOMMENDATIONS: Aggressive risk factor modification and medical management. Further evaluation may be needed if continued symptoms or other high risk indicators are noted on clinical evaluation. Consider a stress echo, stress cardiac MRI, cardiac CTA etc. if clinically indicated. Close cardiology follow-up is also recommended. Clinical correlation with echocardiogram derived ejection fraction. Inability to exercise by itself can lead to increased cardiovascular event risks. Consider cardiology consultation and or follow-up if clinically indicated. I am available for cardiology evaluation and consultation if requested by the asset analyst, unless patient already has a sand buffer. JODEE
[2018-02-11 16:20] VITALS: BP 114/74
--- NOTE | 2018-02-11 17:07 | PDOC DISCHARGE SUMMARY ---
General - Admit/Disc Date/PCP Admission Date/Primary Care Provider: 02/11/18 01:53 KURT GNADHI Discharge Date: 02/11/18 - Discharge Diagnosis (1) Chest pain Is this a current diagnosis for this admission?: Yes (2) Constipation Is this a current diagnosis for this admission?: Yes (3) Diabetes Is this a current diagnosis for this admission?: Yes - Additional Information Resuscitation Status: Full Code Discharge Diet: Cardiac, Diabetic Discharge Activity: Activity As Tolerated, Balance Activity w/Rest, Slowly Increase Activity Prescriptions: Aspirin [Aspirin EC] 81 mg PO DAILY PRN #1 pkg PRN Reason: Home Medications: Aspirin [Aspirin EC] 81 mg PO DAILY PRN #1 pkg 02/11/18 Butalb/Acetaminophen/Caffeine [Fioricet (50-325-40 mg) Tablet] 1 tab PO TIDP PRN 02/11/18 Esomeprazole Magnesium [Nexium] 40 mg PO DAILY 02/11/18 Insulin Glargine,Hum.rec.anlog [Lantus Solostar] 20 unit SQ QHS 02/11/18 Linaclotide [Linzess] 290 mcg PO DAILY 02/11/18 Lisinopril [Prinivil 10 mg Tablet] 10 mg PO DAILY 02/11/18 Lubiprostone [Amitiza 24 Mcg Capsule] 24 mcg PO BID 02/11/18 Methocarbamol [Robaxin 750 mg Tablet] 750 mg PO TIDP PRN 02/11/18 Simvastatin [Zocor 20 mg Tablet] 20 mg PO QPM 02/11/18 Sitagliptin Phos/Metformin HCl [Janumet 50-1,000 mg Tablet] 1 each PO BID Tamsulosin HCl [Flomax 0.4 mg Cap.sr] 0.4 mg PO DAILY cap.sr.24h 02/11/18 Tramadol HCl [Ultram 50 mg Tablet] 50 mg PO Q6HP PRN 02/11/18 History of Present Illness History of Present Illness: Per H&P by Dr. Hinojosa: FREDRICK JETER is a 58 year old female with history of morbid obesity, opiate dependent chronic pain, hypertension and diabetes. Patient presents with 24 hours of intermittent left-sided retrosternal chest pain which is 3 out of 5 intensity, waxing and waning with radiation to the left arm associated with nausea and diaphoresis. No palpitations. Exacerbating factors with activity, alleviating factors of nitroglycerin. She denies previous episode, new medications, cardiac stress test. She admits constipation. Initial workup was unremarkable she is referred to the hospitalist for admission Hospital Course Hospital Course: The patient was admitted with intermittent 24 hours of retrosternal chest pain radiating to the left arm and associated with nausea and diaphoresis. She reported the pain worsened with activity and did resolve upon receiving nitroglycerin in the emergency department. EKG demonstrated normal sinus rhythm with borderline T-wave abnormalities to the lateral leads. Chest x-ray was benign. She was admitted on continuous cardiac telemetry and remained in normal sinus rhythm throughout her stay. Serial troponins were negative. Lipid panel was found to be acceptable. She underwent stress testing which did not demonstrate evidence of cardiac ischemia or infarct. The patient did not have any further episodes of chest pain and desire to be discharged to home. At time of discharge, the patient is in stable condition, maintaining oxygen saturations on room air, and chest pain-free. She is advised that cardiac evaluation is not definitive and that she should discuss with her primary care provider a cardiology referral and further cardiac evaluation (echocardiogram, cardiac cath) for continued chest pain. She is also encouraged to return to the emergency department for any chest pain does not resolve after a few moments of rest. She is encouraged to begin a daily aspirin regimen and continue her home dose of atorvastatin medication. She is discharged home and advised follow-up with her primary care provider within 1 week. Physical Exam Vital Signs: Temp Pulse Resp BP Pulse Ox 98 F 81 18 114/74 98 02/11/18 16:15 02/11/18 16:15 02/11/18 16:15 02/11/18 16:15 02/11/18 16:15 Intake & Output 02/10/18 02/11/18 02/12/18 06:59 06:59 06:59 Weight 117.9 kg General appearance: PRESENT: no acute distress, cooperative, obese, well- developed, well-nourished Head exam: PRESENT: atraumatic, normocephalic Eye exam: PRESENT: conjunctiva pink, EOMI, PERRLA. ABSENT: scleral icterus Neck exam: ABSENT: carotid bruit, JVD, lymphadenopathy, thyromegaly Respiratory exam: PRESENT: clear to auscultation sammie, symmetrical, unlabored. ABSENT: rales, rhonchi, wheezes Cardiovascular exam: PRESENT: RRR, +S1, +S2. ABSENT: diastolic murmur, rubs, systolic murmur Pulses: PRESENT: normal dorsalis pedis pul Vascular exam: PRESENT: normal capillary refill GI/Abdominal exam: PRESENT: normal bowel sounds, soft. ABSENT: distended, guarding, mass, organolmegaly, rebound, tenderness Rectal exam: PRESENT: deferred Extremities exam: PRESENT: full ROM. ABSENT: calf tenderness, clubbing, pedal edema Neurological exam: PRESENT: alert, awake, oriented to person, oriented to place , oriented to time, oriented to situation, CN II-XII grossly intact. ABSENT: motor sensory deficit Psychiatric exam: PRESENT: appropriate affect, normal mood. ABSENT: homicidal ideation, suicidal ideation Skin exam: PRESENT: dry, intact, warm. ABSENT: cyanosis, rash Results Laboratory Results: 02/11/18 06:45 Triglycerides 169 H Cholesterol 184.61 LDL Cholesterol Direct 85 VLDL Cholesterol 33.8 H HDL Cholesterol 55 02/11/18 02/11/18 06:45 12:05 CK-MB (CK-2) 1.18 1.15 Troponin I < 0.012 < 0.012 Impressions: Chest X-Ray 02/10/18 21:03 IMPRESSION: NO ACUTE RADIOGRAPHIC FINDING IN THE CHEST. Qualifiers - * PATIENT BEING DISCHARGED WITH ANY OF THE FOLLOWING DIAGNOSIS: No Plan Discharge Plan: Discharge to home with self-care. Follow-up with primary care provider within 1 week.
[2018-02-11] MEDS ORDERED: ATORVASTATIN CALCIUM 40 MG TABLET PO SCH (22:00)
== END 2018-02-11 16:48 | disposition home or self-care (01) ==
LOC: ER 21:01 → EH 02-11 01:53 → 5 02-11 03:20
PROVIDERS: ADMIT Internal Medicine; ATTEND Internal Medicine
DX: R07.89 Other chest pain (principal); K59.00 Constipation, unspecified; I12.9 Hypertensive chronic kidney disease with stage 1 through stage 4 chronic kidney disease, or unspecified chronic kidney disease; E11.22 Type 2 diabetes mellitus with diabetic chronic kidney disease; N18.9 Chronic kidney disease, unspecified; G89.29 Other chronic pain; F11.20 Opioid dependence, uncomplicated; R07.2 Precordial pain; R11.0 Nausea; R61 Generalized hyperhidrosis; R06.02 Shortness of breath; E66.9 Obesity, unspecified; E78.5 Hyperlipidemia, unspecified; Z68.37 Body mass index [BMI] 37.0-37.9, adult; Z79.82 Long term (current) use of aspirin; Z79.899 Other long term (current) drug therapy; Z90.710 Acquired absence of both cervix and uterus; Z82.49 Family history of ischemic heart disease and other diseases of the circulatory system; Z79.84 Long term (current) use of oral hypoglycemic drugs; Z87.442 Personal history of urinary calculi
CPT/HCPCS: 93005; 99285; 36415 ×2; 82553 ×2; 82962; 82550; 85025; 80053; 84484 ×2; 80061; 93017; 71045; 78452; 93010; G0378 ×2; A9500; J2785; A9270 ×5; J1644; Q9969; S0119

== ENCOUNTER → 2018-07-30 | Outpatient (CLI) | payer MEDICARE, MEDICAID | LOC: OD 12:39 | PROVIDERS: ATTEND Nurse Practitioner Acute Care | DX: R30.0 Dysuria (principal) | CPT/HCPCS: 87086; 87088; 87186 ==

== ENCOUNTER 2018-08-01 07:39 | Emergency (ER) | payer MEDICARE, MEDICAID ==
[2018-08-01] MEDS ORDERED: MORPHINE SULFATE 10 MG/ML INJ IM ONE (08:38)
[2018-08-01] MEDS ORDERED: KETOROLAC TROMETHAMINE 60 MG/2 ML SDV IM ONE (08:38)
--- NOTE | 2018-08-01 08:45 | ER Document Report ---
ED Extremity Problem, Lower - General Chief Complaint: Foot Pain Stated Complaint: FOOT PAIN Time Seen by Provider: 08/01/18 08:26 TRAVEL OUTSIDE OF THE [place] IN LAST 30 DAYS: No - HPI Notes: Patient is a 58-year-old female that presents to the emergency department for chief complaint of bilateral foot pain. Patient reports 1 month of constant and worsening bilateral foot pain. She has seen her primary care doctor and completed a course of medicine for gout. She states she had some initial improvement but then the pain continues. She does not know what the medication she was given was. Patient has since been seen by an urgent care twice for the same symptoms. She states the urgent care started her on a medicine for nerve pain but she is not sure what that medication is called. She reports a constant burning sensation in both of her feet. Her right foot is worse than the left. Pain is improved when she is sitting and significantly worse with any palpation or weightbearing. Patient denies any injury or trauma. She denies any fevers or chills. She does have diabetes and states her glucose is well controlled usually running around 100. She denies any nausea, vomiting, shortness of breath or illness recently. Past Medical History: Diabetes Past Surgical History: Reviewed in chart Social History: Denies drugs alcohol and tobacco Family History: Reviewed and noncontributory for presenting illness Allergies: Reviewed, see documented allergy list. REVIEW OF SYSTEMS: CONSTITUTIONAL : No fever No chills No diaphoresis No recent illness EENT: No vision changes No congestion No sore throat CARDIOVASCULAR: No chest pain No palpitations RESPIRATORY: No shortness of breath No cough No difficulty breathing GASTROINTESTINAL: No abdominal pain No nausea No vomiting No diarrhea GENITOURINARY: No dysuria No hematuria No difficulty urinating MUSCULOSKELETAL: No back pain No leg pain Bilateral foot pain No arm pain SKIN: No rashes No lesions LYMPHATIC: No swollen, enlarged glands. NEUROLOGICAL: No lightheadedness No headache No weakness No paresthesias PSYCHIATRIC: No anxiety No depression PHYSICAL EXAMINATION: Vital signs reviewed, nursing noted reviewed. GENERAL: Well-appearing, well-nourished and in no acute distress. HEAD: Atraumatic, normocephalic. EYES: Eyes appear normal, extraocular movements intact, sclera anicteric, conjunctiva are normal. ENT: nares patent, oropharynx clear without exudates. Moist mucous membranes. NECK: Normal range of motion, supple without lymphadenopathy LUNGS: Breath sounds clear to auscultation bilaterally and equal. No wheezes rales or rhonchi. HEART: Regular rate and rhythm without murmurs ABDOMEN: Soft, nontender, normoactive bowel sounds. No rebound, guarding, or rigidity. No masses appreciated. EXTREMITIES: Tenderness with minimal palpation of bilateral feet right greater than left, good range of motion, no pitting or edema. NEUROLOGICAL: No focal neurological deficits. Moves all extremities spontaneously Motor and sensory grossly intact on exam. PSYCH: Normal mood, normal affect. SKIN: Warm, Dry, normal turgor, no rashes or lesions noted on exposed skin. No erythema. - Related Data Allergies/Adverse Reactions: codeine [Codeine] Allergy (Verified 08/01/18 08:06) Past Medical History - Social History Smoking Status: Never Smoker Chew tobacco use (# tins/day): No Drug Abuse: None Family History: CAD, DM, Hyperlipidemia, Hypertension Patient has suicidal ideation: No Patient has homicidal ideation: No - Past Medical History Cardiac Medical History: Reports: Hx Hypercholesterolemia, Hx Hypertension Denies: Hx Coronary Artery Disease, Hx Heart Attack Pulmonary Medical History: Denies: Hx Asthma, Hx Bronchitis, Hx COPD, Hx Pneumonia Endocrine Medical History: Reports: Hx Diabetes Mellitus Type 2 Renal/ Medical History: Reports: Hx Kidney Stones, Hx Renal Insufficiency. Denies: Hx Peritoneal Dialysis Musculoskeletal Medical History: Denies Hx Arthritis Past Surgical History: Reports: Hx Hysterectomy - Immunizations Immunizations up to date: Yes Hx Diphtheria, Pertussis, Tetanus Vaccination: No Review of Systems - Review of Systems Notes: Dictated Physical Exam - Vital signs Vitals: Temp Pulse Resp BP Pulse Ox 98.3 F 94 18 142/78 H 100 08/01/18 07:44 08/01/18 07:44 08/01/18 07:44 08/01/18 07:44 08/01/18 07:44 - Notes Notes: Dictated Course - Re-evaluation Re-evalutation: 08/01/18 08:45 Vitals reviewed. Nursing notes reviewed. Patient given morphine and Toradol for pain control. The symptoms are concerning for possible neuropathy versus acute gouty flare. I am unsure what the nerve medication is that she had previously been prescribed therefore I will not be prescribing gabapentin or Lyrica. Patient states that she has not tolerated steroids in the past. She will be started on a course of ibuprofen for possible gouty flare. Patient was referred to podiatry for further evaluation. There is no sign of overlying erythema or cellulitis. There is no acute injury and I do not suspect underlying fracture, images not currently indicated. Patient will be discharged home with a short course of Luana for her acute pain. She is requesting Dr. Vergara's phone number which will be provided. Discharged in stable condition. - Vital Signs Vital signs: Temp Pulse Resp BP Pulse Ox 98.3 F 94 18 142/78 H 100 08/01/18 07:44 08/01/18 07:44 08/01/18 07:44 08/01/18 07:44 08/01/18 07:44 Discharge - Discharge Clinical Impression: Foot pain, bilateral Condition: Stable Disposition: HOME, SELF-CARE Instructions: Gout ([facility]), Neuropathy ([facility]) Prescriptions: Hydrocodone/Acetaminophen [Luana 5-325 mg Tablet] 1 tab PO Q6 #12 tablet Ibuprofen [Motrin 600 mg Tablet] 600 mg PO Q6 #20 tablet Referrals: DAYNE SALMON NP [Primary Care Provider] - Follow up as needed Virginia VERGARA MD [ACTIVE STAFF] - Follow up as needed KALANI ZARATE DPM [ACTIVE STAFF] - Follow up in 3-5 days (Dog Sitter)
[2018-08-01 09:46] VITALS: BP 140/76
== END 2018-08-01 09:45 | disposition home or self-care (01) ==
LOC: ER 07:39
DX: M79.672 Pain in left foot (principal); M79.671 Pain in right foot; E78.00 Pure hypercholesterolemia, unspecified; I10 Essential (primary) hypertension; E11.9 Type 2 diabetes mellitus without complications; Z88.6 Allergy status to analgesic agent; Z87.442 Personal history of urinary calculi; Z90.710 Acquired absence of both cervix and uterus
CPT/HCPCS: 99283; 96372; J1885; J2270

== ENCOUNTER → 2018-10-16 | Outpatient (CLI) | payer MEDICARE, MEDICAID ==
[2018-10-16 08:36] LABS: HEMATOCRIT 38.7 % (36.0-47.0); MEAN CORPUSCULAR HEMOGLOBIN 30.9 pg (27.0-33.4); MEAN CORPUSCULAR HGB CONC 33.5 g/dL (32.0-36.0); MEAN CORPUSCULAR VOLUME 92 fl (80-97); PLATELET COUNT 258 10^3/uL (150-450); RED CELL DISTRIBUTION WIDTH 13.6 % (11.5-14.0); WHITE BLOOD COUNT 5.5 10^3/uL (4.0-10.5)
[2018-10-16 09:04] LABS: ANION GAP 6 (5-19); BLOOD UREA NITROGEN 16 mg/dL (7-20); CALCIUM 9.2 mg/dL (8.4-10.2); CARBON DIOXIDE 24 mmol/L (22-30); CHLORIDE 108 mmol/L (98-107); GLUCOSE 193 mg/dL (75-110); POTASSIUM 4.5 mmol/L (3.6-5.0); SODIUM 138.1 mmol/L (137-145)
[2018-10-16 09:11] LABS: APPEARANCE,URINE SLIGHTLY-CLOUDY; BILIRUBIN,URINE NEGATIVE (NEGATIVE); COLOR,URINE YELLOW; GLUCOSE, URINE NEGATIVE (NEGATIVE); KETONES,URINE NEGATIVE (NEGATIVE); LEUKOCYTE ESTERASE,URINE NEGATIVE (NEGATIVE); NITRITE,URINE NEGATIVE (NEGATIVE); PROTEIN,URINE NEGATIVE (NEGATIVE); URINE SPECIFIC GRAVITY 1.017; UROBILINOGEN,URINE NEGATIVE mg/dL (<2.0)
== END ==
LOC: OD 07:51
PROVIDERS: ATTEND Internal Medicine Nephrology
DX: I12.9 Hypertensive chronic kidney disease with stage 1 through stage 4 chronic kidney disease, or unspecified chronic kidney disease (principal); N18.3 Chronic kidney disease, stage 3 (moderate); E11.22 Type 2 diabetes mellitus with diabetic chronic kidney disease; M10.00 Idiopathic gout, unspecified site
CPT/HCPCS: 36415; 80048; 81001; 85027

== ENCOUNTER 2018-11-10 13:48 | Emergency (ER) | payer MEDICARE, MEDICAID ==
[2018-11-10 14:05] VITALS: BP 150/83
[2018-11-10] MEDS ORDERED: ASPIRIN 81 MG TABLET, CHEWABLE PO ONE (15:16)
--- NOTE | 2018-11-10 15:19 | ER Document Report ---
ED Medical Screen (RME) - General Chief Complaint: Chest Pain Stated Complaint: CHEST PAIN Time Seen by Provider: 11/10/18 15:07 Primary Care Provider: Virginia FONG MD [Primary Care Provider] - Follow up as needed Mode of Arrival: Ambulatory Information source: Patient Notes: Patient is a 58-year-old female who presents the emergency department with sudden onset chest pain that began approximately 1 PM. Patient reports it was on the left side of her chest with radiation into her right arm. There was associated numbness in her right arm. She also states she became diaphoretic and dizzy. Denies any nausea. Patient is a non-smoker, denies history of hypertension, hyperlipidemia or any cardiac disease. Exam: Heart sounds S1-S2 present with no ectopy noted. Lung sounds clear to auscultation bilaterally. Of note patient became frustrated when I told her we needed to do blood work. She states that if her EKG is okay she wants to go home and follow-up with her doctor tomorrow I explained to her that we cannot rule out a cardiac cause of her chest pain without doing blood work and that if she leaves she would be leaving AGAINST MEDICAL ADVICE. Patient agrees to stay at this time. I have greeted and performed a rapid initial assessment of this patient. A comprehensive ED assessment and evaluation of the patient, analysis of test results and completion of the medical decision making process will be conducted by additional ED providers. Dictation of this chart was performed using voice recognition software; therefore, there may be some unintended grammatical errors. TRAVEL OUTSIDE OF THE [place] IN LAST 30 DAYS: No - Related Data Allergies/Adverse Reactions: codeine [Codeine] Allergy (Verified 11/10/18 15:07) Past Medical History - Social History Frequency of alcohol use: None Drug Abuse: None - Past Medical History Cardiac Medical History: Reports: Hx Hypercholesterolemia, Hx Hypertension Denies: Hx Coronary Artery Disease, Hx Heart Attack Pulmonary Medical History: Denies: Hx Asthma, Hx Bronchitis, Hx COPD, Hx Pneumonia Endocrine Medical History: Reports: Hx Diabetes Mellitus Type 2 - no longer on meds Renal/ Medical History: Reports: Hx Kidney Stones, Hx Renal Insufficiency. Denies: Hx Peritoneal Dialysis Musculoskeltal Medical History: Denies Hx Arthritis Past Surgical History: Reports: Hx Hysterectomy - Immunizations Immunizations up to date: Yes Hx Diphtheria, Pertussis, Tetanus Vaccination: No History of Influenza Vaccine for 06/2017 - 11/2017 Season: Unknown Physical Exam - Vital signs Vitals: Temp Pulse Resp BP Pulse Ox 99.3 F 92 18 150/83 H 99 11/10/18 14:03 11/10/18 14:03 11/10/18 14:03 11/10/18 14:03 11/10/18 14:03 Course - Vital Signs Vital signs: Temp Pulse Resp BP Pulse Ox 99.3 F 92 18 150/83 H 99 11/10/18 14:03 11/10/18 14:03 11/10/18 14:03 11/10/18 14:03 11/10/18 14:03 Doctor's Discharge - Discharge Referrals: Virginia FONG MD [Primary Care Provider] - Follow up as needed
--- NOTE | 2018-11-10 17:43 | EKG REPORT ---
SEVERITY:- ABNORMAL ECG - SINUS RHYTHM PROBABLE INFERIOR INFARCT, AGE INDETERMINATE : Confirmed by: Hoang Boston MD 10-Nov-2018 17:42:31
== END 2018-11-10 16:15 | disposition left against medical advice (07) ==
LOC: ER 13:48
DX: R07.9 Chest pain, unspecified (principal); R42 Dizziness and giddiness; E78.00 Pure hypercholesterolemia, unspecified; I10 Essential (primary) hypertension; Z88.6 Allergy status to analgesic agent; Z87.442 Personal history of urinary calculi
CPT/HCPCS: 36415; 93005; 93010; 99281

== ENCOUNTER 2019-02-08 09:12 | Emergency (ER) | payer MEDICARE, MEDICAID ==
--- NOTE | 2019-02-08 10:02 | ER Document Report ---
ED Medical Screen (RME) - General Chief Complaint: Edema Stated Complaint: HAND AND LEG SWELLING Time Seen by Provider: 02/08/19 09:57 Primary Care Provider: Virginia FONG MD [Primary Care Provider] - Follow up as needed Mode of Arrival: Ambulatory Information source: Patient TRAVEL OUTSIDE OF THE [place] IN LAST 30 DAYS: No - HPI Patient complains to provider of: SWELLING Notes: 02/08/19 10:01 Patient here with complaints of swelling to the arms and legs. This been going on for the last 2 days. No chest pain or shortness of breath. She has a recent new diagnosis of hypertension and was recently started on an antihypertensive medication but she cannot remember the name. She complains of some headache and dizziness as well. Exam No distress, nontoxic. Lungs clear and equal throughout. Heart sounds normal. Trace edema to the lower extremities. Mild swelling noted to the bilateral kennedy nds. No erythema. Plan CBC, CMP, BNP, TSH, magnesium, chest x-ray An initial examination was made on the patient as part of the triage process, and it was determined a more comprehensive evaluation was necessary. Initial labs were ordered and patient was transferred to another provider in the ED who assumed care and finished evaluation and plan. - Related Data Allergies/Adverse Reactions: codeine [Codeine] Allergy (Verified 11/10/18 15:07) Past Medical History - Social History Chew tobacco use (# tins/day): No Frequency of alcohol use: None Drug Abuse: None - Past Medical History Cardiac Medical History: Reports: Hx Hypercholesterolemia, Hx Hypertension Denies: Hx Coronary Artery Disease, Hx Heart Attack Pulmonary Medical History: Denies: Hx Asthma, Hx Bronchitis, Hx COPD, Hx Pneumonia Endocrine Medical History: Reports: Hx Diabetes Mellitus Type 2 - no longer on meds Renal/ Medical History: Reports: Hx Kidney Stones, Hx Renal Insufficiency. Denies: Hx Peritoneal Dialysis Musculoskeltal Medical History: Denies Hx Arthritis Past Surgical History: Reports: Hx Hysterectomy - Immunizations Immunizations up to date: Yes Hx Diphtheria, Pertussis, Tetanus Vaccination: No History of Influenza Vaccine for 06/2017 - 11/2017 Season: Unknown Physical Exam - Vital signs Vitals: Temp Pulse Resp BP Pulse Ox 98.5 F 85 16 155/74 H 97 02/08/19 09:25 02/08/19 09:25 02/08/19 09:25 02/08/19 09:25 02/08/19 09:25 Course - Vital Signs Vital signs: Temp Pulse Resp BP Pulse Ox 98.5 F 85 16 155/74 H 97 02/08/19 09:25 02/08/19 09:25 02/08/19 09:25 02/08/19 09:25 02/08/19 09:25 Doctor's Discharge - Discharge Referrals: Virginia FONG MD [Primary Care Provider] - Follow up as needed
[2019-02-08 10:27] LABS: ABSOLUTE EOSINOPHILS # (AUTO) 0.3 10^3/uL (0.0-0.6); ABSOLUTE LYMPHOCYTES (AUTO) 1.4 10^3/uL (0.5-4.7); ABSOLUTE MONOCYTES (AUTO) 0.4 10^3/uL (0.1-1.4); BASOPHILS % (AUTO) 0.3 % (0-2); EOSINOPHILS % (AUTO) 5.4 % (0-6); HEMATOCRIT 36.1 % (36.0-47.0); HEMOGLOBIN 12.1 g/dL (12.0-15.5); LYMPHOCYTES % (AUTO) 28.5 % (13-45); MEAN CORPUSCULAR HEMOGLOBIN 30.7 pg (27.0-33.4); MEAN CORPUSCULAR HGB CONC 33.5 g/dL (32.0-36.0); MEAN CORPUSCULAR VOLUME 92 fl (80-97); MONOCYTES % (AUTO) 7.5 % (3-13); PLATELET COUNT 239 10^3/uL (150-450); RED BLOOD COUNT 3.94 10^6/uL (3.72-5.28); RED CELL DISTRIBUTION WIDTH 12.6 % (11.5-14.0); SEGMENTED NEUTROPHILS % (AUTO) 58.3 % (42-78); TOTAL CELLS COUNTED % (AUTO) 100 %; WHITE BLOOD COUNT 5.1 10^3/uL (4.0-10.5)
[2019-02-08 10:45] LABS: APPEARANCE,URINE CLEAR; BILIRUBIN,URINE NEGATIVE (NEGATIVE); COLOR,URINE YELLOW; GLUCOSE, URINE >=500 mg/dL (NEGATIVE); KETONES,URINE NEGATIVE (NEGATIVE); LEUKOCYTE ESTERASE,URINE NEGATIVE (NEGATIVE); NITRITE,URINE NEGATIVE (NEGATIVE); PROTEIN,URINE NEGATIVE (NEGATIVE); UROBILINOGEN,URINE NEGATIVE mg/dL (<2.0)
--- NOTE | 2019-02-08 10:52 | RADIOLOGY REPORT (SQ) ---
EXAM DESCRIPTION: CHEST 2 VIEWS COMPLETED DATE/TIME: 02/08/2019 10:43 am REASON FOR STUDY: SWELLING COMPARISON: 01/02/2018. EXAM PARAMETERS: NUMBER OF VIEWS: two views TECHNIQUE: Digital Frontal and Lateral radiographic views of the chest acquired. RADIATION DOSE: NA LIMITATIONS: none FINDINGS: LUNGS AND PLEURA: No opacities, masses or pneumothorax. No pleural effusion. MEDIASTINUM AND HILAR STRUCTURES: No masses or contour abnormalities. HEART AND VASCULAR STRUCTURES: Heart normal size. No evidence for failure. BONES: No acute findings. HARDWARE: None in the chest. OTHER: No other significant finding. IMPRESSION: NO ACUTE RADIOGRAPHIC FINDING IN THE CHEST. TECHNICAL DOCUMENTATION: JOB ID: [id number] [employer]- All Rights Reserved Reading location - IP/workstation name: [email or web address]
[2019-02-08 11:05] LABS: ALANINE AMINOTRANSFERASE 30 U/L (9-52); ALBUMIN 3.5 g/dL (3.5-5.0); ALKALINE PHOSPHATASE 70 U/L (38-126); ANION GAP 7 (5-19); ASPARTATE AMINO TRANSFERASE 24 U/L (14-36); BILIRUBIN,DIRECT 0.2 mg/dL (0.0-0.4); BILIRUBIN,TOTAL 0.2 mg/dL (0.2-1.3); BLOOD UREA NITROGEN 16 mg/dL (7-20); CALCIUM 9.1 mg/dL (8.4-10.2); CARBON DIOXIDE 31 mmol/L (22-30); CHLORIDE 102 mmol/L (98-107); GLUCOSE 310 mg/dL (75-110); SODIUM 139.9 mmol/L (137-145); TOTAL PROTEIN 6.2 g/dL (6.3-8.2)
--- NOTE | 2019-02-08 13:25 | ER Document Report ---
ED General - General Chief Complaint: Edema Stated Complaint: HAND AND LEG SWELLING Time Seen by Provider: 02/08/19 09:57 Primary Care Provider: Virginia FONG MD [ACTIVE STAFF] - Follow up as needed Mode of Arrival: Ambulatory Notes: 59-year-old female with insulin-dependent diabetes mellitus, hypertension Barry for pain and swelling in her hands and legs. She states this started ye sterday and she has had a history of intermittent swelling but none like this. She states that her primary doctor recently placed her on a new antihypertensive but she has been on it for approximately 1 month. She denies fevers, chills, nausea, vomiting, chest pain, shortness of breath, diarrhea, constipation. She denies any urinary symptoms. TRAVEL OUTSIDE OF THE [place] IN LAST 30 DAYS: No - Related Data Allergies/Adverse Reactions: codeine [Codeine] Allergy (Verified 11/10/18 15:07) Past Medical History - General Information source: Patient - Social History Smoking Status: Never Smoker Chew tobacco use (# tins/day): No Frequency of alcohol use: None Drug Abuse: None Family History: CAD, DM, Hyperlipidemia, Hypertension Patient has suicidal ideation: No Patient has homicidal ideation: No - Past Medical History Cardiac Medical History: Reports: Hx Hypercholesterolemia, Hx Hypertension Denies: Hx Coronary Artery Disease, Hx Heart Attack Pulmonary Medical History: Denies: Hx Asthma, Hx Bronchitis, Hx COPD, Hx Pneumonia Endocrine Medical History: Reports: Hx Diabetes Mellitus Type 2 - no longer on meds Renal/ Medical History: Reports: Hx Kidney Stones, Hx Renal Insufficiency. Denies: Hx Peritoneal Dialysis Musculoskeletal Medical History: Denies Hx Arthritis Past Surgical History: Reports: Hx Hysterectomy - Immunizations Immunizations up to date: Yes Hx Diphtheria, Pertussis, Tetanus Vaccination: No Review of Systems - Review of Systems Constitutional: See HPI EENT: No symptoms reported Cardiovascular: See HPI Respiratory: No symptoms reported Gastrointestinal: See HPI Genitourinary: See HPI Female Genitourinary: No symptoms reported Musculoskeletal: See HPI Skin: No symptoms reported Hematologic/Lymphatic: No symptoms reported Neurological/Psychological: See HPI Physical Exam - Vital signs Vitals: Temp Pulse Resp BP Pulse Ox 98.5 F 85 16 155/74 H 97 02/08/19 09:25 02/08/19 09:25 02/08/19 09:25 02/08/19 09:25 02/08/19 09:25 - Notes Notes: PHYSICAL EXAMINATION: Reviewed vital signs and charting by RN GENERAL: Well-appearing, well-nourished and in no acute distress. HEAD: Atraumatic, normocephalic EYES: Pupils are 3 mm and equal/round, extraocular movements intact, sclera anicteric, conjunctiva are normal. ENT: Nares patent bilaterally, oropharynx clear without exudates or palatal petechia. Moist mucous membranes. No tonsil hypertrophy. NECK: Normal range of motion, supple without lymphadenopathy. LUNGS: Breath sounds present, equal, and clear to auscultation bilaterally. No wheezes, rales, or rhonchi. HEART: Regular rate and rhythm without murmurs, rubs, or gallops. 2+ peripheral pulses. Normal capillary refill. ABDOMEN: Soft, nontender, nondistended. Normoactive bowel sounds. No guarding, no rebound. No masses appreciated. BACK: Normal contour, no midline tenderness. Rectal exam deferred. PELVC: Deferred. EXTREMITIES: Normal range of motion, 1+ nonpitting edema in bilateral hands forearms, bilateral feet. No cyanosis. NEUROLOGICAL: No focal neurological deficits. Moves all extremities spontaneously and on command. Course - Re-evaluation Re-evalutation: 02/08/19 13:22 Well-appearing, patient does have some swelling but she stated has resolved somewhat. Because she was placed on a new antihypertensive I cannot rule out that this is the cause of her swelling. Lab work is unremarkable except she does have a serum glucose of 310. Urine does not show any evidence of UTI, no leukocytosis, afebrile. Kidney function is normal. It is reasonable that patie nt can follow-up with her primary doctor. - Vital Signs Vital signs: Temp Pulse Resp BP Pulse Ox 98.5 F 85 16 155/74 H 97 02/08/19 09:25 02/08/19 09:25 02/08/19 09:25 02/08/19 09:25 02/08/19 09:25 - Laboratory Result Diagrams: 02/08/19 10:14 02/08/19 10:14 Laboratory results interpreted by me: 02/08/19 02/08/19 10:14 10:23 Carbon Dioxide 31 H Est GFR ( Amer) 54 L Est GFR (Non-Af Amer) 45 L Glucose 310 H Total Protein 6.2 L Urine Glucose (UA) >=500 H Discharge - Discharge Clinical Impression: Swelling of extremity Condition: Good Disposition: HOME, SELF-CARE Additional Instructions: You are seen in the emergency department this afternoon for swelling of your hands and your feet. All of your lab work was normal except your blood sugar was 310. It is unclear why this is happening but because it is gone down some that is very reassuring. Nothing in our lab work tells us that you have an infection, urine heart failure, or you are in kidney failure. Because of this there is no emergent condition at this time it is reasonable to follow-up with your primary doctor. If you develop acute shortness of breath, severe unremitting chest pain, severe abdominal pain, your swelling gets much worse, your face neck or throat starts to swell up, or if any other concerning symptoms please merely return to the emergency department. Referrals: Virginia FONG MD [ACTIVE STAFF] - Follow up as needed
[2019-02-08 14:44] VITALS: BP 164/85
== END 2019-02-08 14:44 | disposition home or self-care (01) ==
LOC: ER 09:12
DX: M79.89 Other specified soft tissue disorders (principal); E78.00 Pure hypercholesterolemia, unspecified; I10 Essential (primary) hypertension; E11.9 Type 2 diabetes mellitus without complications; Z87.442 Personal history of urinary calculi; Z90.710 Acquired absence of both cervix and uterus; Z88.6 Allergy status to analgesic agent
CPT/HCPCS: 36415; 71046; 80053; 81001; 83735; 83880; 84443; 85025; 99283

== ENCOUNTER 2019-09-26 11:46 | Emergency (ER) | payer MEDICARE, MEDICAID ==
[2019-09-26 12:07] LABS: ABSOLUTE EOSINOPHILS # (AUTO) 0.1 10^3/uL (0.0-0.6); ABSOLUTE LYMPHOCYTES (AUTO) 1.2 10^3/uL (0.5-4.7); ABSOLUTE MONOCYTES (AUTO) 0.4 10^3/uL (0.1-1.4); ABSOLUTE NEUT (AUTO) 4.3 10^3/uL (1.7-8.2); BASOPHILS % (AUTO) 0.5 % (0-2); EOSINOPHILS % (AUTO) 1.2 % (0-6); HEMATOCRIT 41.8 % (36.0-47.0); HEMOGLOBIN 14.3 g/dL (12.0-15.5); LYMPHOCYTES % (AUTO) 19.8 % (13-45); MEAN CORPUSCULAR HEMOGLOBIN 31.6 pg (27.0-33.4); MEAN CORPUSCULAR HGB CONC 34.1 g/dL (32.0-36.0); MEAN CORPUSCULAR VOLUME 93 fl (80-97); MONOCYTES % (AUTO) 7.5 % (3-13); PLATELET COUNT 242 10^3/uL (150-450); RED BLOOD COUNT 4.52 10^6/uL (3.72-5.28); RED CELL DISTRIBUTION WIDTH 13.1 % (11.5-14.0); TOTAL CELLS COUNTED % (AUTO) 100 %
[2019-09-26 12:07] LABS: VENOUS BLOOD BASE EXCESS 3.4 mmol/L; VENOUS BLOOD HCO3 29.2 mmol/L (20-32); VENOUS BLOOD PCO2 49.2 mmHg (35-63); VENOUS BLOOD PH 7.39 (7.30-7.42)
[2019-09-26 12:12] LABS: INTERNATIONAL RATION (INR) 1.01; PROTHROMBIN TIME 13.3 SEC (11.4-15.4)
[2019-09-26 12:28] LABS: ALBUMIN 4.3 g/dL (3.5-5.0); ALKALINE PHOSPHATASE 83 U/L (38-126); ANION GAP 13 (5-19); ASPARTATE AMINO TRANSFERASE 25 U/L (14-36); BILIRUBIN,DIRECT 0.3 mg/dL (0.0-0.4); BILIRUBIN,TOTAL 0.5 mg/dL (0.2-1.3); BLOOD UREA NITROGEN 21 mg/dL (7-20); CALCIUM 9.8 mg/dL (8.4-10.2); CARBON DIOXIDE 30 mmol/L (22-30); CHLORIDE 91 mmol/L (98-107); POTASSIUM 3.4 mmol/L (3.6-5.0); TOTAL PROTEIN 7.5 g/dL (6.3-8.2)
[2019-09-26 12:40] LABS: GLUCOSE 483 mg/dL (75-110)
--- NOTE | 2019-09-26 13:36 | RADIOLOGY REPORT (SQ) ---
EXAM DESCRIPTION: CHEST SINGLE VIEW COMPLETED DATE/TIME: 09/26/2019 12:36 pm REASON FOR STUDY: sepsis suspected COMPARISON: Two-view chest 02/08/2019 EXAM PARAMETERS: NUMBER OF VIEWS: One view. TECHNIQUE: Single frontal radiographic view of the chest acquired. RADIATION DOSE: NA LIMITATIONS: None. FINDINGS: LUNGS AND PLEURA: No opacities, masses or pneumothorax. No pleural effusion. MEDIASTINUM AND HILAR STRUCTURES: No masses. Contour normal. HEART AND VASCULAR STRUCTURES: Heart normal in size. Normal vasculature. BONES: No acute findings. HARDWARE: None in the chest. OTHER: No other significant finding. IMPRESSION: NO ACUTE RADIOGRAPHIC FINDING IN THE CHEST. TECHNICAL DOCUMENTATION: JOB ID: [id number] [employer]- All Rights Reserved Reading location - IP/workstation name: [email or web address]
--- NOTE | 2019-09-26 14:12 | EKG REPORT ---
SEVERITY:- OTHERWISE NORMAL ECG - SINUS RHYTHM VENTRICULAR PREMATURE COMPLEX : Confirmed by: Hoang Boston MD 26-Sep-2019 14:11:45
[2019-09-26] MEDS ORDERED: NORMAL SALINE 1000 ML 1,000 ML IV ONE (16:26)
[2019-09-26] MEDS ORDERED: INSULIN REG, HUMAN 100 UNIT/ML 3 ML VIAL (PYX) SUBCUT ONE ×2 (16:31→20:31)
--- NOTE | 2019-09-26 17:33 | RADIOLOGY REPORT (SQ) ---
EXAM DESCRIPTION: CT HEAD WITHOUT COMPLETED DATE/TIME: 09/26/2019 5:17 pm REASON FOR STUDY: AMS COMPARISON: None. TECHNIQUE: Axial images acquired through the brain without intravenous contrast. Images reviewed wi th bone, brain and subdural windows. Additional sagittal and coronal reconstructions were generated. Images stored on PACS. All CT scanners at this facility use dose modulation, iterative reconstruction, and/or weight based d osing when appropriate to reduce radiation dose to as low as reasonably achievable (ALARA). [facility]: Dose Right [facility]: CareDose [facility]: Dose Right [facility]: Teradose 4D [facility]: [employer] RADIATION DOSE: CT Rad equipment meets quality standard of care and radiation dose reduction techniq ues were employed. CTDIvol: 48.7 mGy. DLP: 979 mGy-cm. mGy. LIMITATIONS: None. FINDINGS: VENTRICLES: Normal size and contour. CEREBRUM: No masses. No hemorrhage. No midline shift. No evidence for acute infarction. Normal gra y/white matter differentiation. No areas of low density in the white matter. CEREBELLUM: No masses. No hemorrhage. No alteration of density. No evidence for acute infarction. EXTRAAXIAL SPACES: No fluid collections. No masses. ORBITS AND GLOBE: No intra- or extraconal masses. Normal contour of globe without masses. CALVARIUM: No fracture. PARANASAL SINUSES: No fluid or mucosal thickening. SOFT TISSUES: No mass or hematoma. OTHER: No other significant finding. IMPRESSION: No acute intracranial pathology. EVIDENCE OF ACUTE STROKE: NO. COMMENT: Quality ID # [id number]: Final reports with documentation of one or more dose reduction techniques (e.g., Automated exposure control, adjustment of the mA and/or kV according to patient size, use of iterative reconstruction technique) TECHNICAL DOCUMENTATION: JOB ID: [id number] [employer]- All Rights Reserved Reading location - IP/workstation name: [email or web address]
--- NOTE | 2019-09-26 18:18 | ER Document Report ---
Entered by SHEILA TORREZ SCRIBE 09/26/19 1633 Acting as scribe for:DONTRELL LUNA IV, MD ED General - General Mode of Arrival: Ambulatory Information source: Patient TRAVEL OUTSIDE OF THE U.S. IN LAST 30 DAYS: No <DONTRELL LUNA IV - Last Filed: 09/26/19 18:48> <JUSTO JIMENEZ - Last Filed: 09/27/19 11:04> <JUSTINE GUZMAN - Last Filed: 09/27/19 11:49> - General Chief Complaint: Syncope Stated Complaint: GENERAL WEAKNESS Time Seen by Provider: 09/26/19 15:33 Primary Care Provider: [facility] [Outside] - Follow up in 3-5 days [facility] [Outside] - Follow up as needed LIAM DE LA TORRE NP-C [Primary Care Provider] - Follow up as needed Notes: This 59-year-old female patient presents to the emergency department today with several very vague complaints including dizziness, nausea, being very emotional, feeling depressed, feeling disoriented, feeling very tired, and being unable to focus. Patient states all of these above-mentioned symptoms seemed to have all began around the time she was diagnosed with rheumatoid arthritis and started on medications for this. Patient mentions that one of her new medications is taken once a week on Friday and this seems to be the medication that causes her to "lose focus, become emotional, crying all the time". Patient is unable to name this medication or provide who prescribes this medication, where she gets this medication, or anything else that would be helpful. Eventually the patient goes on to mention that she recently moved here so that she can be closer to family and then as soon as she got moved in here all of the family moved away. This appears to be one of the main causes of the patient's depression. Patient requesting to stay here voluntarily overnight to talk to someone from mental health tomorrow. (DONTRELL LUNA IV) - Related Data Allergies/Adverse Reactions: codeine [Codeine] Allergy (Verified 11/10/18 15:07) Past Medical History - General Information source: Patient - Social History Smoking Status: Unknown if Ever Smoked Cigarette use (# per day): No Frequency of alcohol use: None Drug Abuse: None Lives with: Alone Family History: CAD, DM, Hyperlipidemia, Hypertension Patient has suicidal ideation: No Patient has homicidal ideation: No - Past Medical History Cardiac Medical History: Reports: Hx Hypercholesterolemia, Hx Hypertension Endocrine Medical History: Reports: Hx Diabetes Mellitus Type 2 - no longer on meds Renal/ Medical History: Reports: Hx Kidney Stones, Hx Renal Insufficiency Past Surgical History: Reports: Hx Hysterectomy - Immunizations Immunizations up to date: Yes Hx Diphtheria, Pertussis, Tetanus Vaccination: No <DONTRELL LUNA IV - Last Filed: 09/26/19 18:48> Review of Systems - Review of Systems Constitutional: No symptoms reported EENT: No symptoms reported Cardiovascular: See HPI, Dizziness Respiratory: No symptoms reported Gastrointestinal: See HPI, Nausea Genitourinary: No symptoms reported Female Genitourinary: No symptoms reported Musculoskeletal: No symptoms reported Skin: No symptoms reported Hematologic/Lymphatic: No symptoms reported Neurological/Psychological: See HPI, Depression, Anxiety -: Yes All other systems reviewed and negative <DONTRELL LUNA IV - Last Filed: 09/26/19 18:48> Physical Exam <DONTRELL LUNA IV - Last Filed: 09/26/19 18:48> - Vital signs Vitals: Resp BP Pulse Ox 13 137/76 H 98 09/26/19 11:53 09/26/19 11:53 09/26/19 11:53 - Notes Notes: Physical Exam: General: Alert, appears well. HEENT: Normocephalic. Atraumatic. PERRL. Extraocular movements intact. Oropharynx clear. Neck: Supple. Non-tender. Respiratory: No respiratory distress. Clear and equal breath sounds bilaterally. Cardiovascular: Regular rate and rhythm. Abdominal: Morbidly obese. Non-tender. No distension. Normal Bowel Sounds. Back: No gross abnormalities. Extremities: Moves all four extremities. Upper extremities: Normal inspection. Normal ROM. Lower extremities: Normal inspection. No edema. Normal ROM. Neurological: Normal cognition. AAOx4. Normal speech. Psychological: Appears depressed. Skin: Warm. Dry. Normal color. (DONTRELL LUNA IV) Course - Laboratory Result Diagrams: 09/26/19 11:15 09/26/19 11:15 - Transfer of Care Care transferred to following provider: NICK ESCOBAR AT 1900 <DONTRELL LUNA IV - Last Filed: 09/26/19 18:48> - Laboratory Result Diagrams: 09/26/19 11:15 09/26/19 11:15 <JUSTO JIMENEZ - Last Filed: 09/27/19 11:04> - Laboratory Result Diagrams: 09/26/19 11:15 09/26/19 11:15 <JUSTINE GZUMAN - Last Filed: 09/27/19 11:49> - Re-evaluation Re-evalutation: 09/27/19 11:43 59-year-old female presenting with depression. Has been evaluated by Imer from psychiatry, recommendation for Celexa 20 mg daily. I evaluated the patient. She is not suicidal or homicidal at this time. She is somewhat tearful still. She is in agreement with this plan. Patient was noted to have elevated blood glucose levels overnight, will have nursing recheck Accu-Chek at this time. Patient states that she has been on metformin previously but had significant w eight loss so they took her off of the medication several years ago. She states she does have a primary care provider in [place] that she will follow-up with regarding her elevated blood glucose levels. I will start the patient on metformin for hyperglycemia. (JUSTINE GUZMAN) - Vital Signs Vital signs: Temp Pulse Resp BP Pulse Ox 97.6 F 78 20 109/55 L 99 09/27/19 09:18 09/27/19 09:18 09/27/19 09:18 09/27/19 09:18 09/27/19 09:18 - Laboratory Laboratory results interpreted by me: 09/26/19 09/26/19 09/26/19 11:15 11:15 11:50 Sodium 134.3 L Potassium 3.4 L Chloride 91 L BUN 21 H Creatinine 1.35 H Est GFR ( Amer) 48 L Est GFR (MDRD) Non-Af 40 L Glucose 483 H* POC Glucose Hemoglobin A1c % 11.0 H Lactic Acid 4.2 H Urine Glucose (UA) Leukocyte Esterase Rfl 09/26/19 09/26/19 09/26/19 11:57 16:25 19:00 Sodium Potassium Chloride BUN Creatinine Est GFR ( Amer) Est GFR (MDRD) Non-Af Glucose POC Glucose 438 H* 333 H Hemoglobin A1c % Lactic Acid 2.8 H Urine Glucose (UA) Leukocyte Esterase Rfl 09/26/19 09/26/19 20:05 20:16 Sodium Potassium Chloride BUN Creatinine Est GFR ( Amer) Est GFR (MDRD) Non-Af Glucose POC Glucose 390 H Hemoglobin A1c % Lactic Acid Urine Glucose (UA) >=500 H Leukocyte Esterase Rfl TRACE H - Transfer of Care Notes: 09/26/19 18:49 PT IS MEDICALLY CLEARED. PT IS AWAITING PSYCH CONSULT FOR C/O LABILE MOOD AND DEPRESSION. PT IS VOLUNTARILY WAITING UNTIL SHE IS SEEN BY DR HALL TOMORROW AM. (DONTRELL LUNA IV) Discharge <DONTRELL LUNA IV - Last Filed: 09/26/19 18:48> <JUSTO JIMENEZ - Last Filed: 09/27/19 11:04> <JUSTINE GUZMAN - Last Filed: 09/27/19 11:49> - Discharge Clinical Impression: Hyperglycemia Depression Qualifiers: Depression Type: unspecified Qualified Code(s): F32.9 - Major depressive disorder, single episode, unspecified Condition: Good Disposition: HOME, SELF-CARE Additional Instructions: YOU have been evaluated by both medical and behavioral health teams and have been deemed appropriate for discharge. You have been provided a prescription for Celexa 20mg daily; please take as directed. You have also been provided a local resource list of area providers including mobile crisis contact information. Please follow you with your chosen provider in 3-5 days for an kym ointment. DEPRESSION: Your evaluation reveals that you have mental depression. While symptoms may be vague, they often include disturbance of sleep, fatigue, loss of appetite, and general loss of interest in life. While depression may be a side effect of drugs, or a reaction to a major change in your life, many cases have no known cause. If depression is acute, and related to a major loss in your life, you can expect it to clear completely with time. If you have been depressed a long time, are prone to repeated bouts of depression or low mood, or have been thinking of suicide, get help. Depression can be treated with anti-depressant medication and counselling. Long-term depression will often take a few weeks to clear, even with appropriate medication. Follow-up care is important. FOLLOW-UP CARE: If you have been referred to a physician for follow-up care, call the ysicians office for an appointment as you were instructed or within the next two days.~ If you experience worsening or a significant change in your symptoms, notify the physician immediately or return to the Emergency Department at any time for re-evaluation. It was also noted that your blood glucose levels were significantly elevated tonight. Take the metformin to treat this. You have been on this medication previously. Call your primary care provider today or tomorrow to discuss further follow-up for the hyperglycemia Prescriptions: Citalopram Hydrobromide [Celexa 20 mg Tablet] 20 mg PO DAILY #30 tablet Metformin HCl [Glucophage 500 mg Tablet] 500 mg PO BID #60 tablet Metformin HCl [Glucophage 500 mg Tablet] 500 mg PO BID #60 tablet Referrals: LIAM DE LA TORRE NP-C [Primary Care Provider] - Follow up as needed [facility] [Outside] - Follow up as needed [facility] [Outside] - Follow up in 3-5 days I personally performed the services described in the documentation, reviewed and edited the documentation which was dictated to the scribe in my presence, and it accurately records my words and actions.
[2019-09-26] MEDS ORDERED: TRAMADOL HCL 50 MG TABLET PO ONE (20:31)
[2019-09-26 20:33] LABS: APPEARANCE,URINE SLIGHTLY-CLOUDY; BILIRUBIN,URINE NEGATIVE (NEGATIVE); COLOR,URINE YELLOW; GLUCOSE, URINE >=500 mg/dL (NEGATIVE); KETONES,URINE NEGATIVE (NEGATIVE); PROTEIN,URINE NEGATIVE (NEGATIVE); URINE SPECIFIC GRAVITY 1.026; UROBILINOGEN,URINE NEGATIVE mg/dL (<2.0)
[2019-09-27] MEDS ORDERED: TRAMADOL HCL 50 MG TABLET PO ONE (10:01)
--- NOTE | 2019-09-27 11:04 | PSYCHOLOGICAL NOTE ---
Psych Note - Psych Note Date seen by psych provider: 09/27/19 Time seen by psych provider: 08:30 Psych Note: Reason for Consult: Depression Patient reports she has been feeling very depressed and crying frequently since her son moved to [place]. She reports she was told she as arthritis and her son moved at about the same time before . She reports she has no history of mental health and states this si the first time she has felt this depressed. She confirms she chose not to move with her son because she didn't want to impose. Her daughter lives in [place] and the rest of her family lives in [place]. She reports she would like therapy to help her with her emotions. Patient is alert and orientated to person, place time and circumstance. Mood is dysphoric with tearful affect. Patient denies suicidal and homicidal ideation. Delusions are absent and behaviours are congruent with an intact reality based presentation ie organized and linear thought processes. Eye contact was well maintained. Conversational speech is within normal rate tone and prosody. Intellectual abilities appear to be within average range. Attention and concentration are good insight, judgment and impulse control are currently good. Medication recommendations per [facility]'s contracted psychiatrist Dr Osito DUMAS are as follows Celexa 20mg daily Impression/Plan: patient is cleared from acute psychiatric services. Patient engaged with clinician and discussed her increase in depression since her son and his family moved to [place]. The rest of the patient's family lives in [place]. She denies a history of depression, anxiety or any other mental health disorder. She states this is the first time she has ever felt this way. Clinician notes the Patient presented with extremely high sugars and states she did not know she was diabetic; her sugars being unstable could also be contributing to her present depressed mood. She would like resources for therapy and has been provided resources for the local area. Due to her high depression and tearful affect, medication recommendations have been provided to assist the patient in maintaining her mood for effecting therapy treatment.Patient is recommended to follow up with outpatient services. Dr. Galeano was consulted on the care and management of this patient; attending physician is in agreement with recommendations and disposition.
[2019-09-27] MEDS ORDERED: CITALOPRAM HYDROBROMIDE 20 MG TABLET PO ONE (11:27)
[2019-09-27] MEDS ORDERED: METFORMIN HCL 500 MG TABLET PO ONE (12:13)
[2019-09-27 12:21] VITALS: BP 112/60
== END 2019-09-27 12:22 | disposition home or self-care (01) ==
LOC: ER 11:46
DX: E11.65 Type 2 diabetes mellitus with hyperglycemia (principal); F32.9 Major depressive disorder, single episode, unspecified; R55 Syncope and collapse; R53.1 Weakness; R42 Dizziness and giddiness; R11.0 Nausea; E78.00 Pure hypercholesterolemia, unspecified; I10 Essential (primary) hypertension; Z87.442 Personal history of urinary calculi; Z90.710 Acquired absence of both cervix and uterus; Z88.6 Allergy status to analgesic agent
CPT/HCPCS: 93005; 99285; 36415; 87040; 87086; 82962; 83605; 85025; 85610; 87077; 87088; 80053; 81001; 84484; 87186; 83036; 82803; 71045; 70450; 93010; A9270 ×5; J7030; J1815

== ENCOUNTER → 2019-10-27 | Outpatient (CLI) | payer MEDICARE, MEDICAID ==
[2019-10-27 09:11] LABS: HEMOGLOBIN 13.5 g/dL (12.0-15.5); MEAN CORPUSCULAR HEMOGLOBIN 31.9 pg (27.0-33.4); MEAN CORPUSCULAR HGB CONC 34.6 g/dL (32.0-36.0); MEAN CORPUSCULAR VOLUME 92 fl (80-97); PLATELET COUNT 278 10^3/uL (150-450); RED BLOOD COUNT 4.23 10^6/uL (3.72-5.28)
[2019-10-27 09:18] LABS: APPEARANCE,URINE SLIGHTLY-CLOUDY; BILIRUBIN,URINE NEGATIVE (NEGATIVE); COLOR,URINE YELLOW; GLUCOSE, URINE NEGATIVE (NEGATIVE); KETONES,URINE NEGATIVE (NEGATIVE); LEUKOCYTE ESTERASE,URINE NEGATIVE (NEGATIVE); NITRITE,URINE NEGATIVE (NEGATIVE); PROTEIN,URINE 30 mg/dL (NEGATIVE); UROBILINOGEN,URINE NEGATIVE mg/dL (<2.0)
[2019-10-27 09:36] LABS: ANION GAP 10 (5-19); BLOOD UREA NITROGEN 18 mg/dL (7-20); CALCIUM 9.6 mg/dL (8.4-10.2); CARBON DIOXIDE 27 mmol/L (22-30); CHLORIDE 100 mmol/L (98-107); GLUCOSE 151 mg/dL (75-110)
== END ==
LOC: OD 07:55
PROVIDERS: ATTEND Internal Medicine Nephrology
DX: E11.22 Type 2 diabetes mellitus with diabetic chronic kidney disease (principal); I12.9 Hypertensive chronic kidney disease with stage 1 through stage 4 chronic kidney disease, or unspecified chronic kidney disease; N18.2 Chronic kidney disease, stage 2 (mild); M10.00 Idiopathic gout, unspecified site
CPT/HCPCS: 36415; 80048; 81001; 84550; 85027

== ENCOUNTER 2020-06-07 09:08 | Emergency (ER) | payer MEDICARE, MEDICAID ==
[2020-06-07] MEDS ORDERED: DEXAMETHASONE SOD PHOS INJ 10 MG/1 ML VIAL IV ONE (10:07)
[2020-06-07] MEDS ORDERED: DIPHENHYDRAMINE HCL 50 MG/ML VIAL IV ONE (10:07)
[2020-06-07] MEDS ORDERED: KETOROLAC TROMETHAMINE INJ/PF 30 MG/1 ML SDV IV ONE (10:07)
[2020-06-07] MEDS ORDERED: PROCHLORPERAZINE EDISYLATE INJ 10 MG/2 ML VIAL IV ONE (10:07)
[2020-06-07] MEDS ORDERED: NORMAL SALINE 1000 ML 1,000 ML IV ONE (10:08)
--- NOTE | 2020-06-07 10:13 | ER Document Report ---
ED General - General Chief Complaint: Pain All Over Stated Complaint: BODY PAIN Time Seen by Provider: 06/07/20 10:06 Primary Care Provider: LIAM DE LA TORRE NP-C [Primary Care Provider] - Follow up as needed Mode of Arrival: Ambulatory Information source: Patient Notes: 60-year-old female presented to ED for complaint of pain all over. She states she is got rheumatoid arthritis and the weather change is really made her hurt all over. She states she is on tramadol and is taking this with no relief. She states she is also having a headache and her back hurts. She states she only medical history she has his rheumatoid arthritis deteriorating spine and migraines. She states she has had a hysterectomy but did not really know why she did. She is alert oriented respirations regular nonlabored speaking in full sentences REVIEW OF SYSTEMS: CONSTITUTIONAL : Denies fever, chills, or sweats. Denies recent illness. EENT: Denies eye, ear, throat, or mouth pain or symptoms. Denies nasal or sinus congestion. CARDIOVASCULAR: Denies chest pain. RESPIRATORY: Denies cough, cold, or chest congestion. Denies shortness of breath, difficulty breathing, or wheezing. MUSCULOSKELETAL: States all of her joints hurt and her head hurts. She has rheumatoid arthritis degenerative spine and migraines. SKIN: Denies rash or skin lesions. HEMATOLOGIC : Denies easy bruising or bleeding. NEUROLOGICAL: Denies altered mental status or loss of consciousness. Denies weakness or paralysis or loss of use of either side. Denies problems with gait or speech. Denies sensory or motor loss. PSYCHIATRIC: Denies anxiety or stress or depression. ALL OTHER SYSTEMS REVIEWED AND NEGATIVE. VITAL SIGNS: Within normal limits. GENERAL: No acute distress, non-toxic appearance. HEAD: Normal with no signs of head trauma. EYES: PERRLA, EOMI, conjunctiva normal, no discharge. EARS: Hearing grossly intact. NOSE: Normal. THROAT: Oropharynx is normal. NECK: Normal range of motion, no tenderness, supple, no lymphadenopathy, No adenopathy, no JVD. CHEST: Clear breath sounds bilaterally. No wheezes, rales, or rhonchi. CARDIAC: Regular rate and rhythm. S1 and S2, without murmurs, gallops, or rubs. VASCULAR: No Edema. Peripheral pulses normal and equal in all extremities. ABDOMEN: Normal and soft with no tenderness, no masses or pulsatile masses. GASTROINTESTINAL: Bowel sounds normal GENITOURINARY: Normal, No tenderness LYMPATHTIC: No lymphadenopathy noted. MUSCULOSKELETAL: Patient has obvious arthritis to both joints NEUROLOGICAL: Alert and oriented x 3. No focal sensory or strength deficits. Speech normal. Follows commands appropriately. PSYCHIATRIC: Normal Affect, judgement and mood. SKIN: Normal appearance with no rashes or lesions. TRAVEL OUTSIDE OF THE [place] IN LAST 30 DAYS: No - HPI Onset: Other Onset/Duration: Gradual Quality of pain: Achy Severity: Moderate Pain Level: 3 Associated symptoms: Body/muscle aches, Headache Exacerbated by: Movement, Other Relieved by: Denies Similar symptoms previously: Yes Recently seen / treated by doctor: No - Related Data Allergies/Adverse Reactions: codeine [Codeine] Allergy (Verified 11/10/18 15:07) Past Medical History - General Information source: Patient - Social History Smoking Status: Never Smoker Frequency of alcohol use: None Drug Abuse: None Lives with: Family Family History: CAD, DM, Hyperlipidemia, Hypertension Patient has suicidal ideation: No - Past Medical History Cardiac Medical History: Reports: Hx Hypercholesterolemia, Hx Hypertension Pulmonary Medical History: Reports: None EENT Medical History: Reports: None Neurological Medical History: Reports: None Endocrine Medical History: Reports: Hx Diabetes Mellitus Type 2 - no longer on meds Renal/ Medical History: Reports: Hx Kidney Stones, Hx Renal Insufficiency Malignancy Medical History: Reports: None GI Medical History: Reports: None Musculoskeletal Medical History: Reports Hx Arthritis Skin Medical History: Reports None Psychiatric Medical History: Reports: None Traumatic Medical History: Reports: None Infectious Medical History: Reports: None Past Surgical History: Reports: Hx Hysterectomy - Immunizations Immunizations up to date: Yes Hx Diphtheria, Pertussis, Tetanus Vaccination: No Physical Exam - Vital signs Vitals: Temp Pulse Resp BP Pulse Ox 98.4 F 83 20 124/75 100 06/07/20 09:37 06/07/20 09:37 06/07/20 09:37 06/07/20 09:37 06/07/20 09:37 Course - Re-evaluation Re-evalutation: 06/07/20 21:55 She was treated with Compazine Benadryl and Toradol for her headache. She states she got good relief from this headache. She was then discharged home. Patient states she would follow-up with her primary care doctor. Presentation of a headache that appears to be most consistent with tension versus migrainous type headache. Headache was not maximal in onset, patient has no focal neurologic deficits, no nuchal rigidity, vital signs within normal limits, no papilledema, and patient is overall well in appearance. Based on clinical history and examination I do not suspect an acute subarachnoid hemorrhage, dural venous sinus thrombosis, acute meningitis, or intercranial mass. Given my low clinical suspicion for any acute life-threatening etiology, I do not feel advanced neuro imaging or laboratory testing is indicated at this time. Will proceed with headache cocktail and reassess. - Vital Signs Vital signs: Temp Pulse Resp BP Pulse Ox 97.5 F 72 16 134/66 H 100 06/07/20 11:17 06/07/20 11:17 06/07/20 11:17 06/07/20 11:17 06/07/20 11:17 Discharge - Discharge Clinical Impression: Arthritis Headache Qualifiers: Headache type: unspecified Headache chronicity pattern: acute headache Intractability: not intractable Qualified Code(s): R51 - Headache Condition: Stable Disposition: HOME, SELF-CARE Additional Instructions: HEADACHE: The physician does not feel that the headache you are experiencing has a serious underlying cause. Most headaches are due to emotional stress, with resultant muscle tension (tension headache). Occasionally, headaches are secondary to changes in the blood vessels of the scalp (vascular headache and migraine headache). Sometimes, a headache is the first symptom of another developing illness, such as a viral infection. You have no evidence of stroke, bleeding, meningitis, or other serious cause of your headache. The treatment of headaches varies with the severity and cause of the pain. Not all headaches need pain shots. In fact, there is evidence that using narcotics for headaches may make them worse in the long run. The physician will determine the therapy that's in your best interest. If you develop a fever, if the headache is different from any you've previously experienced, or if the headache progressively worsens, then call your physician at once or go to the emergency room. Arthritis Your symptoms are due to arthritis. Arthritis is an inflammation of the joints. There are many types -- osteoarthritis (due to "wear and tear"), auto- immmune arthritis (such as rheumatoid, lupus, Catalina's, and others), and crystal-induced arthritis (such as gout and pseudogout). The physician's examination, combined with laboratory tests, will determine the cause of your arthritis. All types of arthritis are treated with antiinflammatory medications. Other medication may be required for special types of arthritis, or if your problem does not respond to the antiinflammatory medicine. Local warmth may be helpful. Move the involved joints through the full range of motion daily. Mild exercise is usually still possible for most persons with arthritis (ask your physician). Swimming provides good exercise without damaging the joints. Contact the physician if you are worsening in any way. USE OF DIPHENHYDRAMINE: Diphenhydramine (Benadryl) is an antihistamine and has been recommended to help treat your headache and to prevent side effects of other medications used to treat headaches. The medication can be repeated four times daily. Age Elixir (12.5 mg/tsp) 25 mg pill adult 1-2 tabs Antihistamines may cause drowsiness, especially with the first dose. Do not operate machinery or drive while under the effects of the medication. Do not combine the medication with alcohol, or with any other medication without talking to your doctor. INTRAVENOUS COMPAZINE FOR HEADACHE: You have received therapy for headaches, using intravenous Compazine. This treatment is dramatically successful in relieving the headache in about 50 percent of cases. When it works, it provides a rapid method of eliminating the headache without resorting to narcotics (and the problems associated with them). Most patients still feel fully alert after the Compazine, but others may be slightly drowsy. It's best not to drive or work with machinery for six to eight hours. Do not take alcohol or other medication unless you discuss it with the doctor. If you develop tightness and spasms in your muscles, especially the neck and tongue, you should return. This is a side effect which can be treated. TORADOL INJECTION: You have been given an injection of ketorolac tromethamine (Toradol). This is an excellent, safe drug for pain control. It also has potent antiinflammatory action. You should have significant pain relief within about one hour. Toradol is not addicting and is non-sedating. It does not interfere with driving or work. Call or return if you develop itching, hives, shortness of breath, or rash. STEROID MEDICATION: You have been given an injection of medicine of the cortisone/steroid class. This medication is used to control inflammation or allergy. It is often continued as a pill for a short period of time, until the acute process subsides. There are usually no side effects from short-term use of cortisone-like medications. Some persons feel an increased sense of well-being and are not sleepy at bedtime. Long-term use of cortisone medications is best avoided, unless required for a severe condition. If your condition does not remit, or relapses after the course of corticosteroid medication, you should consult your physician. FOLLOW-UP CARE: If you have been referred to a physician for follow-up care, call the physicians office for an appointment as you were instructed or within the next two days. If you experience worsening or a significant change in your symptoms, notify the physician immediately or return to the Emergency Department at any time for re-evaluation. Referrals: LIAM DE LA TORRE NP-C [Primary Care Provider] - Follow up as needed
[2020-06-07 11:19] VITALS: BP 134/66
== END 2020-06-07 11:28 | disposition home or self-care (01) ==
LOC: ER 09:08
DX: M06.9 Rheumatoid arthritis, unspecified (principal); G43.909 Migraine, unspecified, not intractable, without status migrainosus; G31.89 Other specified degenerative diseases of nervous system; I10 Essential (primary) hypertension; E11.9 Type 2 diabetes mellitus without complications; Z86.69 Personal history of other diseases of the nervous system and sense organs; Z88.6 Allergy status to analgesic agent; Z88.5 Allergy status to narcotic agent
CPT/HCPCS: 99284; 96361; 96374; 96375; J1200; J1885; J0780; J7030; J1100